=== PATIENT | male | born 1965 ===

== ENCOUNTER 2018-06-30 18:15 | Inpatient (IN) | payer OTHER ==
[~2018-06-30] VITALS: Ht 165.1 cm; Wt 61.0 kg
--- NOTE | 2018-06-30 18:57 | ED GENERAL ADULT ---
History of Present Illness General Chief Complaint: Nausea, Vomiting, Diarrhea Stated Complaint: N/V,ABDOMINAL PAIN Source: patient, family Exam Limitations: no limitations Vital Signs & Intake/Output Vital Signs & Intake/Output Vital Signs Date Time Temp Pulse Resp B/P B/P Pulse O2 O2 Flow FiO2 Mean Ox Delivery Rate 06/30 2252 98.6 80 18 138/86 98 Room Air Room Air 06/30 2033 98.6 86 18 144/88 98 Room Air Room Air 06/307 99.0 83 18 155/98 98 Room Air ED Intake and Output 07/01 0000 06/30 1200 Intake Total 1000 Output Total Balance 1000 Intake, IV 1000 Patient 135 lb Weight Allergies Coded Allergies: No Known Allergies (06/30/18) Reconcile Medications Naphazoline HCl/Pheniramine (Naphcon-A Eye Drops) 0.025 %-0.3 % DROPS 1 DROP OU BID EYES (Reported) Triage Note: 52M THINKS HE MAY HAVE FOOD POISONING, HE HAS BEEN VOMITING SINCE THIS MORNING WITHOUT ABDOMINAL PAIN. LAST BM THIS AM. DOUBLED OVER AND ACTIVELY VOMITING IN TRIAGE Triage Nurses Notes Reviewed? yes HPI: This is an otherwise healthy 52-year-old male presenting to the emergency department with several hours of vomiting and nausea. Patient had a normal bowel movement earlier today. He states that he may have eaten a "suspicious egg", for breakfast, and believes that he may have food poisoning. He has had no sick contacts or travel or other recent illness. He denies any blood or bilious aspect of the vomit. He does complain of some poorly localized periumbilical abdominal pain in addition to his nausea. He denies any chest pain or difficulty breathing. He has had no fever or chills. (David Paz MD) Past History Travel History Traveled to [place] past 21 day No Medical History Any Pertinent Medical History? none Surgical History Surgical History: none Family History Hx Contributory? No (David Paz MD) Review of Systems Review of Systems Constitutional: Reports: no symptoms. EENTM: Reports: no symptoms. Respiratory: Reports: no symptoms. Cardiovascular: Reports: no symptoms. GI: Reports: see HPI. Genitourinary: Reports: no symptoms. Musculoskeletal: Reports: no symptoms. Skin: Reports: no symptoms. Neurological/Psychological: Reports: no symptoms. Hematologic/Endocrine: Reports: no symptoms. Immunologic/Allergic: Reports: no symptoms. (David Paz MD) Physical Exam Physical Exam General Appearance: well developed/nourished, no apparent distress Comments: Thin uncomfortable appearing middle-aged male in no acute distress. Alert and oriented 4. No gross neurologic deficits. HEENT exam within normal limits, no JVD, trachea midline, normal lung exam, normal cardiopulmonary exam overall. No abdominal distention, change in bowel sounds, tenderness to palpation or rebound. Normal , intact pulse movement and sensation in all extremities. Core Measures ACS in differential dx? No CVA/TIA Diagnosis: No Sepsis Present: No Sepsis Focused Exam Completed? No (David Paz MD) Progress Differential Diagnoses I considered the following diagnoses in my evaluation of the patient: Gastroenteritis, gastritis, pancreatitis, nephrolithiasis, urinary tract infection, food borne illness, lower suspicion for acute vascular pathology or appendicitis. Low suspicion also for acute obstructive process. Doubt biliary pathology or liver disease in this patient based on exam. Plan of Care: Orders Procedure Date/time Status Nothing by Mouth 07/01 B Active CBC WITHOUT DIFFERENTIAL 07/01 600 Active BASIC ELECTROLYTES PLUS BUN&CR 07/01 06 Active Admit to inpatient 06/30 2320 Active CULTURE,URINE 06/30 225 Active BLOOD CULTURE 06/30 225 Active Pathway - chart 06/30 225 Active House Staff 06/30 225 Active Patient Data 06/30 225 Active Code Status 06/30 225 Active Patient Data 06/30 2240 Active Intake & Output 06/30 1945 Active URINALYSIS 06/30 1825 Complete TROPONIN LEVEL 06/30 1825 Complete LIPASE 06/30 1825 Complete LACTIC ACID 06/30 1825 Complete COMPREHENSIVE METABOLIC PANEL 06/30 1825 Complete CBC WITHOUT DIFFERENTIAL 06/30 1825 Complete EKG 06/30 1825 Active VTE Mechanical Prophylaxis 06/30 UNK Active Vital Signs 06/30 UNK Active Activity/Ambulation 06/30 UNK Active Current Medications Sig/José Manuel Start time Last Medication Dose Stop Time Status Admin Ceftriaxone Sodium 1,000 MG DAILY 07/01 09 AC (Rocephin) Heparin Sodium 5,000 UNIT Q8 07/01 0600 AC (Porcine) Acetaminophen 650 MG Q6P PRN 06/30 2300 AC (Tylenol) Hydromorphone HCl 1 MG Q6P PRN 06/30 2300 AC (Dilaudid) Ketorolac 15 MG Q6P PRN 06/30 2300 AC Tromethamine (Toradol) Ondansetron HCl 4 MG Q6P PRN 06/30 2300 AC (Zofran) Sodium Chloride 1,000 ML .[id number] 06/30 2300 AC 06/30 (Normal Saline 0.9%) 2347 Laboratory Tests 06/30/182124: Lactic Acid Cancelled 06/30/182116: Urine Color YEL, Urine Clarity CLEAR, Urine pH 7.0, Ur Specific [place] 1.020, Urine Protein NEG, Urine Ketones TRACE H, Urine Nitrite NEG, Urine Bilirubin NEG, Urine Urobilinogen 0.2, Ur Leukocyte Esterase TRACE H, Ur Microscopic SEDIMENT EXAMINED, Urine RBC 3-5, Urine WBC 15-25 H, Ur Epithelial Cells RARE, Urine Bacteria RARE H, Urine Mucus FEW, Urine Hemoglobin TRACE-INTACT H, Urine Glucose 100 H 06/30/181904: Anion Gap 8, Estimated GFR > 60, BUN/Creatinine Ratio 18.3, Glucose 144 H, Lactic Acid 1.5, Calcium 9.6, Total Bilirubin 0.6, AST 24, ALT 27, Alkaline Phosphatase 76, Troponin I < 0.01, Total Protein 7.7, Albumin 4.4, Globulin 3.3, Albumin/Globulin Ratio 1.3, Lipase 38, CBC w Diff NO MAN DIFF REQ, RBC 5.00, MCV 85.7, MCH 29.6, MCHC 34.5, RDW 13.6, MPV 8.3, Gran % 93.5 H, Lymphocytes % 3.5 L, Monocytes % 2.5, Eosinophils % 0.1, Basophils % 0.4, Absolute Granulocytes 11.5 H, Absolute Lymphocytes 0.4 L, Absolute Monocytes 0.3, Absolute Eosinophils 0, Absolute Basophils 0 Microbiology 06/30 2338 BLOOD: Blood Culture - RECD 06/30 2330 BLOOD: Blood Culture - RECD 06/30 2117 URINE ROUT: Urine Culture - RECD In this otherwise healthy 52-year-old male with no toxic habits, presentation is most consistent with gastritis, possibly viral versus acute food borne versus other intra-abdominal process such as nephrolithiasis or appendicitis. Diagnostics are consistent with obstructive nephrolithiasis with UTI. Patient started on ceftriaxone, given IV fluids, Toradol, Dilaudid, admitted to hospital for further management. Dr. Jacinto is paged but I did not receive a call back during my shift. Hospitalist aware, patient admitted to their service. Initial ED EKG: normal intervals, normal p-waves, normal QRS complex, normal sinus rhythm, no ST T wave changes, LAFB, likely L/COLT; Qt400 (David Paz MD) Departure Departure Time of Disposition: 2258 Disposition: STILL A PATIENT Condition: Stable Clinical Impression Primary Impression: Abdominal pain with vomiting Referrals: Unknown (PCP/Family) Departure Forms: Customer Survey General Discharge Information Admission Note Spoke With: Rocky Chong MD Documentation of Exam: Documentation of any treatments & extenuating circumstances including Concerns Regarding Discharge (functional status, medication knowledge or non-compliance, living conditions, etc.) that warrant an admission rather than observation: IV antibiotics, urology consultation with possible stenting; IV fluids, frequent reassessment. (David Paz MD) Resident Co-Sign Statement Statement: ED Attending supervision documentation- I saw and evaluated the patient. I have also reviewed all the pertinent lab results and diagnostic results. I agree with the findings and the plan of care as documented in the Resident's documentation. x I have reviewed the ED Record and agree with the Resident's documentation. [] Additions or exceptions (if any) to the Resident's note and plan are summarized below: [] (Lakia RUIZ,Stuart) Critical Care Note Critical Care Note Critical Care Time: non-applicable (David Paz MD)
[2018-06-30 19:13] LABS: ABSOLUTE BASOPHIL COUNT 0 /CUMM (0.0-0.2); ABSOLUTE EOSINOPHIL COUNT 0 /CUMM (0.0-0.7); ABSOLUTE GRANULOCYTE CT 11.5 /CUMM (1.4-6.5); ABSOLUTE LYMPH COUNT 0.4 /CUMM (1.2-3.4); ABSOLUTE MONOCYTE COUNT 0.3 /CUMM (0.10-0.60); BASOPHIL % 0.4 % (0.0-2.0); EOSINOPHIL % 0.1 % (0-5); HEMATOCRIT 42.9 % (42-52); MEAN CORPUSCULAR HGB 29.6 PG (27.0-31.0); MEAN CORPUSCULAR HGB CONC 34.5 G/DL (33.0-37.0); MEAN CORPUSCULAR VOLUME 85.7 FL (80.0-94.0); MEAN PLATELET VOLUME 8.3 FL (7.4-10.4); PLATELET COUNT 237 /CUMM (130-400); RBC DISTRIBUTION WIDTH 13.6 % (11.5-14.5); WHITE BLOOD CELL COUNT 12.3 /CUMM (4.8-10.8)
[2018-06-30 19:18] LABS: GRANULOCYTE % 93.5 % (42.2-75.2)
[2018-06-30] MEDS ORDERED: NAPHCON-A EYE D15 ML OU (19:23)
--- NOTE | 2018-06-30 21:46 | CT SCAN REPORT ---
EXAMINATION: CT ABDOMEN AND PELVIS WITH CONTRAST CLINICAL INFORMATION: Right lower quadrant pain with vomiting and leukocytosis. COMPARISON: None available. TECHNIQUE: Multidetector volumetric imaging was performed of the abdomen and pelvis following IV administration of 95 mL of Optiray 320 intravenous contrast. Sagittal and coronal reformatted images were obtained on the technologist's workstation. FINDINGS: Right-sided obstructive uropathy. There is a 6 mm calculus within the proximal right ureter at the inferior L3 level and there is a second 4 mm calculus within the proximal right ureter at the upper L4 level (both calculi exhibit mean Hounsfield units of 500). These obstructing calculi result in severe right-sided hydroureteronephrosis. There is a 5 month meter calculus within the lower pole of the right kidney. There is a punctate calculus within the midpole of the left kidney. There is a delayed right-sided nephrogram. There is right-sided perinephric and proximal right periureteral stranding/fluid. Small left renal cyst. The lung bases are clear. There is diffuse hepatic steatosis. The spleen, adrenal glands, gallbladder, and pancreas are normal. The large and small bowel are normal in caliber without evidence of mechanical obstruction. No focal inflammatory changes adjacent to the large or the small bowel. The appendix is normal. There is no free air and there is no intra-abdominal free fluid. No mesenteric or retroperitoneal adenopathy. The pelvic viscera are normal. No pelvic adenopathy. No free fluid within the pelvis. There are no acute osseous abnormalities. Lumbar spondylosis. No significant soft tissue abnormality. IMPRESSION: Right-sided obstructive uropathy. There is a 6 mm calculus within the proximal right ureter at the inferior L3 level and there is a second 4 mm calculus within the proximal right ureter at the upper L4 level (both calculi exhibit mean Hounsfield units of 500). These obstructing calculi result in severe right-sided hydroureteronephrosis. There is a delayed right-sided nephrogram and there is right-sided perinephric and proximal right periureteral stranding/fluid. Superimposed pyelonephritis is not excluded.
[2018-07-01 02:21] VITALS: BP 130/98
--- NOTE | 2018-07-01 04:34 | History & Physical ---
Jacque Moreno 07/01/18 0434: General Information and HPI MD Statement: I have seen and personally examined KARLA MAYORGA and documented this H&P. The patient is a 52 year old M who presented with a patient stated chief complaint of []. Source of Information: patient Exam Limitations: no limitations History of Present Illness: 52 year old male with no PMH presents to the ED with one day history of nausea/ vomiting and abdominal pain. He states he ate an egg this morning and didn't feel well shortly after. He reports 3-4 episodes of non bloody emesis with associated sweats starting at 13:00. He reports his abdominal pain is right sided and does not radiate to his back or his groin. He denies any history of kidney stones. Denies fever, chills, chest pain, SOB. Past History Travel History Traveled to [place] past 21 day No Medical History Neurological: NONE EENT: NONE Cardiovascular: NONE Respiratory: NONE Gastrointestinal: NONE Hepatic: NONE Renal: NONE Musculoskeletal: NONE Psychiatric: NONE Endocrine: NONE Blood Disorders: NONE Cancer(s): NONE CLIMATE CHANGE ANALYST/Reproductive: NONE History of MRSA: No History of VRE: No History of CDIFF: No Isolation History: Standard Surgical History Surgical History: none Past Family/Social History Psychosocial History Where do you live? Home Who Do You Live With? spouse Services at Home: None Smoking Status: Never Smoked ETOH Use: denies use Illicit Drug Use: denies illicit drug use Review of Systems Review of Systems Constitutional: Reports: no symptoms. EENTM: Reports: no symptoms. Cardiovascular: Reports: no symptoms. Respiratory: Reports: no symptoms. GI: Reports: abdominal pain, nausea, vomiting. Genitourinary: Reports: no symptoms. Musculoskeletal: Reports: no symptoms. Skin: Reports: no symptoms. Exam & Diagnostic Data Last 24 Hrs of Vital Signs/I&O Vital Signs Date Time Temp Pulse Resp B/P B/P Pulse O2 O2 Flow FiO2 Mean Ox Delivery Rate 07/01 0241 98 Room Air 07/01 0221 98.5 86 22 130/98 94 Room Air 07/01 0143 97.6 76 18 129/67 98 Room Air 06/30 2252 98.6 80 18 138/86 98 Room Air Room Air 06/303 98.6 86 18 144/88 98 Room Air Room Air 06/30 1827 99.0 83 18 155/98 98 Room Air Intake & Output 07/01 0800 07/01 0000 06/30 1600 Intake Total 1000 Output Total Balance 1000 Intake, IV 1000 Patient 134 lb 135 lb Weight Weight Bed scale Measurement Method Physical Exam General Appearance Alert, Oriented X3, Cooperative, No Acute Distress, Patient received dilaudid and toradol prior to my exam Skin No Rashes Skin Temp/Moisture Exam: Warm/Dry HEENT Atraumatic, PERRLA Neck Supple Cardiovascular Regular Rate, Normal S1, Normal S2, No Murmurs Lungs Clear to Auscultation Abdomen Normal Bowel Sounds, Soft, No Tenderness Extremities No Edema, Normal Pulses Assessment/Plan Assessment: 52 year old male with no PMH presents to the ED with one day history of nausea/ vomiting and abdominal pain. He states he ate an egg this morning and didn't feel well shortly after. He reports 3-4 episodes of non bloody emesis with associated sweats starting at 13:00. He reports his abdominal pain is right sided and does not radiate to his back or his groin. He denies any history of kidney stones. ED work up found right sided renal stones with associated hydroureteronephrosis. Patient to be admitted to the general medicine service for further care of the following: Problem List: 1. Right Renal Calculi Admission Data: VS T99.0 P83 RR18 BP 155/98 Sat 98%RA Labs: WBC 12.3 H/H 14.8/42.9 Plt 237 BUN/Cr 22/1.2 UA: Nit negative; leukocyte esterase trace; WBC high CT abd/pelv: IMPRESSION: Right-sided obstructive uropathy. There is a 6 mm calculus within the proximal right ureter at the inferior L3 level and there is a second 4 mm calculus within the proximal right ureter at the upper L4 level (both calculi exhibit mean Hounsfield units of 500). These obstructing calculi result in severe right-sided hydroureteronephrosis. There is a delayed right-sided nephrogram and there is right-sided perinephric and proximal right periureteral stranding/fluid. Superimposed pyelonephritis is not excluded. #Right renal calculi -Urine strainer -Ceftriaxone -Ketorolac -Zofran -IV fluid hydration NS 75cc/hr -Urine culture -blood culture -NPO after MN (in case urology wants to perform a procedure) -Urology consult placed DVT prophylaxis: heparin 5000units sub cu/ALPS/ambulation Code Status: full code As Ranked By This Provider Problem List: 1. Abdominal pain with vomiting 2. Renal calculus, right Core Measures/Misc (07/30) Acute Coronary Syndrome ACS Diagnosis: No Congestive Heart Failure Congestive Heart Failure Diagnosis No Cerebrovascular Accident CVA/TIA Diagnosis: No VTE (View Protocol) VTE Risk Factors Acute Medical Illness No Mechanical VTE Prophylaxis d/t N/A MechProphylax Ordered No VTE Pharm Prophylaxis d/t NA PharmProphylax ordered Sepsis (View protocol) Sepsis Present: No If YES complete Sepsis Event Note If YES complete Sepsis Event Note Mario Sargent 07/01/18 0456: Core Measures/Misc (07/30) Sepsis (View protocol) If YES complete Sepsis Event Note If YES complete Sepsis Event Note Resident Review Statement Resident Statement: examined this patient, discussed with electrical intern, agreed with electrical intern, discussed with family, reviewed EMR data (avail), discussed with nursing , discussed with case mgmt, reviewed images, amended to note Other Findings: This is a 52-year-old male with no significant past medical history presented to the hospital for evaluation of nausea, vomiting, abdominal pain since morning. Patient has no past medical history. He does not take any medications at home. Patient reports sudden onset of Nausea associated with the vomiting 2-3 times before he came to the emergency room. Vomiting was non-bloody and nonbilious. He reported right-sided abdominal pain going to right lower side, not associated with any diarrhea. No alternating bowel movements. No history of IBD. Denies sick contact or travel history. He has no history of renal stones in the past. Denies any frequency, urgency, dysuria. Denies any fever, chills, Shortness of breath, chest pain, palpitations, change in bladder or bowel habits. He denies smoking, alcohol abuse, illicit drug abuse ----- Vitals afebrile, heart rate 83, respiratory rate 18, blood pressure 155/90, saturating at 98 on room air Labs WBC 12.3, hemoglobin 14, hematocrit 42, platelets 289 BEP normal limit Lactic acid 1.5 UA positive for esterase, WBC, bacteria, hemoglobin He was given IV ceftriaxone, sodium chloride 1 bag, Toradol, Dilaudid, Zofran in the er CT abdomen and pelvis Right-sided obstructive uropathy. There is a 6 mm calculus within the proximal right ureter at the inferior L3 level and there is a second 4 mm calculus within the proximal right ureter at the upper L4 level (both calculi exhibit mean Hounsfield units of 500). These obstructing calculi result in severe right-sided hydroureteronephrosis. There is a delayed right-sided nephrogram and there is right-sided perinephric and proximal right periureteral stranding/fluid. - 1. Acute pyelonephritis secondary to right-sided obstructive uropathy Patient presented with 1 day history of nausea, vomiting, right-sided abdominal pain. He was found to have leukocytosis, UA showed esterase, WBC, bacteria. CAT scan abdomen showed right obstructive uropathy and 6 mm calculus right ureter, severe right-sided hydro-ureteronephrosis. * Admitted to [facility] * Monitor vitals every shift * Monitor for fever, leukocytosis * Acute pyelonephritis secondary to right-sided obstructive uropathy with 6 mm calculus right ureter leading to severe right-sided hydroureteronephrosis * Continue IV ceftriaxone * Follow-up blood cultures 2 * Follow-up urine cultures * Adequate pain management Tylenol, Toradol, Dilaudid * Continue IV fluids at 75 mL/h * Antiemetics * Urology consult * Patient is n.p.o. pending uro evaluation Patient is full code N.p.o. pending a urology evaluation Sub-cutaneous IV heparin Pain pathway ordered Rocky Chong MD 07/01/18 0642: General Information and HPI MD Statement: I have seen and personally examined KARLA MAYORGA and documented this H&P. The patient is a 52 year old M who presented with a patient stated chief complaint of []. Source of Information: patient Exam Limitations: no limitations Allergies/Medications Allergies: Coded Allergies: No Known Allergies (06/30/18) Home Med list Naphazoline HCl/Pheniramine (Naphcon-A Eye Drops) 0.025 %-0.3 % DROPS 1 DROP OU BID EYES (Reported) Past Family/Social History Psychosocial History Smoking Status: Never Smoked ETOH Use: denies use Illicit Drug Use: denies illicit drug use Review of Systems Review of Systems Constitutional: Reports: see HPI. Exam & Diagnostic Data Last 24 Hrs of Vital Signs/I&O Vital Signs Date Time Temp Pulse Resp B/P B/P Pulse O2 O2 Flow FiO2 Mean Ox Delivery Rate 07/01 0550 98.3 90 22 132/90 96 Room Air 07/01 0241 98 Room Air 07/01 0221 98.5 86 22 130/98 94 Room Air 07/01 0143 97.6 76 18 129/67 98 Room Air 06/30 2252 98.6 80 18 138/86 98 Room Air Room Air 06/30 2033 98.6 86 18 144/88 98 Room Air Room Air 06/30 1827 99.0 83 18 155/98 98 Room Air Intake & Output 07/01 0800 07/01 0000 06/30 1600 Intake Total 1000 Output Total 300 Balance -300 1000 Intake, IV 1000 Output, Urine 300 Patient 134 lb 135 lb Weight Weight Bed scale Measurement Method Physical Exam General Appearance Alert, Oriented X3, Cooperative, No Acute Distress Skin No Rashes, No Breakdown, No Significant Lesion Skin Temp/Moisture Exam: Warm/Dry Sepsis Skin Exam (color): Normal for Ethnicity HEENT Atraumatic, PERRLA, EOMI Neck Supple, No JVD Lymphatic Axillary nl, Cervical nl Cardiovascular Regular Rate, Normal S1, Normal S2, No Murmurs Lungs Clear to Auscultation, Normal Air Movement Abdomen Normal Bowel Sounds, Soft, No Tenderness, No Hepatospenomegaly Neurological Normal Speech Extremities No Edema, Normal Pulses Sepsis Peripheral Pulse Location: Dorsalis Pedis Sepsis Peripheral Pulse Exam: Normal Sepsis Cap Refill Exam: <2 Sec Last 24 Hrs of Labs/Lionel: Laboratory Tests 08/18/18 2125: Lactic Acid Cancelled 06/30/182116: Urine Color YEL, Urine Clarity CLEAR, Urine pH 7.0, Ur Specific [place] 1.020, Urine Protein NEG, Urine Ketones TRACE H, Urine Nitrite NEG, Urine Bilirubin NEG, Urine Urobilinogen 0.2, Ur Leukocyte Esterase TRACE H, Ur Microscopic SEDIMENT EXAMINED, Urine RBC 3-5, Urine WBC 15-25 H, Ur Epithelial Cells RARE, Urine Bacteria RARE H, Urine Mucus FEW, Urine Hemoglobin TRACE-INTACT H, Urine Glucose 100 H 06/30/181904: Anion Gap 8, Estimated GFR > 60, BUN/Creatinine Ratio 18.3, Glucose 144 H, Lactic Acid 1.5, Calcium 9.6, Total Bilirubin 0.6, AST 24, ALT 27, Alkaline Phosphatase 76, Troponin I < 0.01, Total Protein 7.7, Albumin 4.4, Globulin 3.3, Albumin/Globulin Ratio 1.3, Lipase 38, CBC w Diff NO MAN DIFF REQ, RBC 5.00, MCV 85.7, MCH 29.6, MCHC 34.5, RDW 13.6, MPV 8.3, Gran % 93.5 H, Lymphocytes % 3.5 L, Monocytes % 2.5, Eosinophils % 0.1, Basophils % 0.4, Absolute Granulocytes 11.5 H, Absolute Lymphocytes 0.4 L, Absolute Monocytes 0.3, Absolute Eosinophils 0, Absolute Basophils 0 Microbiology 06/30 2338 BLOOD: Blood Culture - RECD 06/30 2330 BLOOD: Blood Culture - RECD 06/30 2117 URINE ROUT: Urine Culture - RECD Diagnostic Data EKG Results normal intervals, normal p-waves, normal QRS complex, normal sinus rhythm, no ST T wave changes, LAFB, likely L/COLT; Qt400 Core Measures/Misc (07/30) Sepsis (View protocol) If YES complete Sepsis Event Note If YES complete Sepsis Event Note Attending MD Review Statement Attending Statement Attending MD Statement: examined this patient, discuss w/resident/PA/SEMICONDUCTOR LAB TECHNICIAN, agreed w/resident/PA/SEMICONDUCTOR LAB TECHNICIAN, reviewed EMR data (avail) Attending Assessment/Plan: This patient is a 52-year-old male without a significant past medical history who presented to the hospital for evaluation of nausea, vomiting, abdominal pain since morning. He reports sudden onset of Nausea associated with vomiting 2-3 times before he came to the emergency room. Vomiting was non-bloody and nonbilious. He reported right-sided abdominal pain going to right lower side, not associated with any diarrhea. Upon evaluation in the emergency department he was found to be afebrile with stable vital signs, leukocytosis 12.3, UA demonstrates (trace ketones, trace leukocyte esterase, 3-5 red blood cells, 15- 25 white blood cells and rare bacteria), BUN 22, lactic acid 1.5, CT ABD/Pelv -- Right-sided obstructive uropathy. There is a 6 mm calculus within the proximal right ureter at the inferior L3 level and there is a second 4 mm calculus within the proximal right ureter at the upper L4 level (both calculi exhibit mean Hounsfield units of 500). These obstructing calculi result in severe right-sided hydroureteronephrosis. There is a delayed right-sided nephrogram and there is right-sided perinephric and proximal right periureteral stranding/fluid. Superimposed pyelonephritis is not excluded. The patient is being admitted to general med for hydronephrosis, nephrolithiasis and pyelonephritis. Would continue IV ceftriaxone and follow blood cultures. The patient needed significant pain meds for pain control in the ED with continue to keep comfortable. Nothing by mouth after midnight and gentle hydration. Full code.
[2018-07-01 05:50] VITALS: BP 132/90
--- NOTE | 2018-07-01 08:39 | PN- Housestaff ---
Chalo Mackenzie 07/01/18 0839: Subjective Follow-up For: Right Renal Calculi Subjective: The patient has gone to OR this morning for urologic procedure. Based on the reports from the nurse, there was no major complaints overnight. No shortness of breath, chest pain, fever, chills, sweating. I visited the patient when he was back from the OR, he was not nauseous, had bloody urine after the procedure, started him on diet to see if he tolerates. Asked him to start with liquids. Review of Systems Constitutional: Reports: see HPI. Objective Last 24 Hrs of Vital Signs/I&O Vital Signs Date Time Temp Pulse Resp B/P B/P Pulse O2 O2 Flow FiO2 Mean Ox Delivery Rate 07/01 0800 Room Air 07/01 0550 98.3 90 22 132/90 96 Room Air 07/01 0241 98 Room Air 07/01 0221 98.5 86 22 130/98 94 Room Air 07/01 0143 97.6 76 18 129/67 98 Room Air 06/30 2252 98.6 80 18 138/86 98 Room Air Room Air 06/30 2033 98.6 86 18 144/88 98 Room Air Room Air 06/30 1827 99.0 83 18 155/98 98 Room Air Intake & Output 07/01 1600 07/01 0800 07/01 0000 Intake Total 150 1000 Output Total 600 Balance -450 1000 Intake, IV 150 1000 Output, Urine 600 Patient 134 lb 135 lb Weight Weight Bed scale Measurement Method Physical Exam General Appearance: Alert Skin: No Rashes Skin Temp/Moisture Exam: Warm/Dry HEENT: Atraumatic Cardiovascular: Regular Rate, Normal S1, Normal S2 Lungs: Clear to Auscultation, Normal Air Movement Abdomen: Normal Bowel Sounds, Soft, No Tenderness Neurological: Normal Speech Assessment/Plan Assessment: 52 year old male with no PMH presents to the ED with one day history of nausea/ vomiting and abdominal pain. He states he ate an egg this morning and didn't feel well shortly after. He reports 3-4 episodes of non bloody emesis with associated sweats starting at 13:00. He reports his abdominal pain is right sided and does not radiate to his back or his groin. He denies any history of kidney stones. ED work up found right sided renal stones with associated hydroureteronephrosis. Right renal calculi: Plan: Urine strainer, Ceftriaxone, Ketorolac, Zofran, IV fluid hydration NS 75cc /hr, Urine culture, blood culture, NPO after MN (in case urology wants to perform a procedure), Urology consult placed Urologist took him to the OR and ureteroscopy with laser lithotripsy and stone extraction with stent placement, retrograde pyelogram was done. The following are the findings from urologist: Large lower pole right renal stone adherent to the calyx and 2 smaller ureteral stones that were presumably pushed into the kidney. No large stone fragments appreciated at the end of the procedure. There was bleeding that made visualization difficult. Problem List: 1. Abdominal pain with vomiting 2. Renal calculus, right Pain Ratin Pain Location: Abdominal Pain Goal: Pain 4 or less Pain Plan: Acetaminophen Hydromorphone Tomorrow's Labs & Rationales: As indicated Binu Gamze 07/01/18 1636: Attending MD Review Statement Attending Statement Attending MD Statement: examined this patient, discuss w/resident/PA/MACHINE WEDGER, agreed w/resident/PA/MACHINE WEDGER, discussed with family, reviewed EMR data (avail) Attending Assessment/Plan: Right-sided obstructive uropathy with severe rt side hydroureteronephrosis . There is a 6 mm calculus within the proximal right ureter at the inferior L3 level and there is a second 4 mm calculus within the proximal right ureter at the upper L4 level . seen by urology and underwent ureteroscopy with laser lithotripsy and stone extraction with stent placement. Pt tolerated the procedure well and he says his pain is currently managable. d/w pt and pts family at bedside the care plan.
[2018-07-01 09:29] LABS: ABSOLUTE BASOPHIL COUNT 0 /CUMM (0.0-0.2); ABSOLUTE EOSINOPHIL COUNT 0 /CUMM (0.0-0.7); ABSOLUTE LYMPH COUNT 0.9 /CUMM (1.2-3.4); ABSOLUTE MONOCYTE COUNT 0.6 /CUMM (0.10-0.60); BASOPHIL % 0.1 % (0.0-2.0); EOSINOPHIL % 0.1 % (0-5); HEMATOCRIT 38.7 % (42-52); MEAN CORPUSCULAR HGB 29.8 PG (27.0-31.0); MEAN CORPUSCULAR HGB CONC 34.7 G/DL (33.0-37.0); MEAN CORPUSCULAR VOLUME 85.8 FL (80.0-94.0); MEAN PLATELET VOLUME 9.4 FL (7.4-10.4); PLATELET COUNT 197 /CUMM (130-400); RBC DISTRIBUTION WIDTH 13.3 % (11.5-14.5); RED BLOOD CELL CT 4.51 /CUMM (4.70-6.10); WHITE BLOOD CELL COUNT 10.5 /CUMM (4.8-10.8)
--- NOTE | 2018-07-01 09:47 | Cons- Urology ---
General Information and HPI Consulting Request Date of Consult: 07/01/18 Requested By: Rocky Chong MD Reason for Consult: right ureteral stone with severe hydroureteronephrosis Source of Information: patient Exam Limitations: no limitations History of Present Illness: 52 year old male with no PMH presented to the ED with 5 hour history of nausea/ vomiting and RLQ abdominal pain. He thought he had food poisoning. He reports 3-4 episodes of emesis with associated sweats starting in the early afternoon yestarday. He reports mild right sided back pain. He denies any history of kidney stones. He reports no hx of urinary sx of frequency, nocturia, urgency or dysuria. He has had no voiding complaints either. Denies fever, chills, chest pain, SOB or hx of UTIs/prostatitis. Allergies/Medications Allergies: Coded Allergies: No Known Allergies (06/30/18) Home Med List: Naphazoline HCl/Pheniramine (Naphcon-A Eye Drops) 0.025 %-0.3 % DROPS 1 DROP OU BID EYES (Reported) Current Medications: Current Medications Sig/José Manuel Start time Last Medication Dose Route Stop Time Status Admin Acetaminophen 0 .STK-MED ONE 07/01 0909 DC IV Acetaminophen 650 MG Q6P PRN 06/30 2300 AC PO Ceftriaxone Sodium 1,000 MG DAILY 07/01 0900 AC 07/01 IV 0850 Ceftriaxone Sodium 0 .STK-MED ONE 06/30 2235 DC .ROUTE Ceftriaxone Sodium 1,000 MG ONCE ONE 06/30 2215 DC 06/30 IV 06/30 2216 2244 Fentanyl Citrate 0 .STK-MED ONE 07/01 0910 DC .ROUTE Heparin Sodium 5,000 UNIT Q8 07/01 0600 AC 07/01 (Porcine) SC 0745 Hydromorphone HCl 0 .STK-MED ONE 07/01 0936 DC .ROUTE Hydromorphone HCl 1 MG Q6P PRN 06/30 2300 AC IV Hydromorphone HCl 1 MG ONCE ONE 06/30 1930 DC 06/30 IV 06/30 193 1944 Hydromorphone HCl 0 .STK-MED ONE 06/30 1922 DC .ROUTE Ketorolac 15 MG Q6P PRN 06/30 2300 AC Tromethamine IV Ketorolac 0 .STK-MED ONE 06/30 2139 DC Tromethamine .ROUTE Ketorolac 30 MG ONCE ONE 06/30 2130 DC 06/30 Tromethamine IV 06/30 2131 2150 Midazolam HCl 0 .STK-MED ONE 07/01 0909 DC .ROUTE Ondansetron HCl 4 MG Q6P PRN 06/30 2300 AC IV Ondansetron HCl 0 .STK-MED ONE 06/30 1909 DC .ROUTE Ondansetron HCl 4 MG ONCE ONE 06/30 1845 DC 06/30 IV 06/30 184 1912 Sodium Chloride 1,000 ML .[id number] 06/30 2300 AC 06/30 IV 2347 Sodium Chloride 1,000 ML BOLUS ONE 06/30 193 DC 06/30 IV 06/30 Past History Medical History Neurological: NONE EENT: NONE Cardiovascular: NONE Respiratory: NONE Gastrointestinal: NONE Hepatic: NONE Renal: NONE Musculoskeletal: NONE Psychiatric: NONE Endocrine: NONE Blood Disorders: NONE Cancer(s): NONE END TRIMMER/Reproductive: NONE Surgical History Pertinent Surgical History: 1 Psychosocial History Where Do You Live? Home Who Do You Live With? spouse Services at Home: None Smoking Status: Never Smoked ETOH Use: denies use Illicit Drug Use: denies illicit drug use Review of Systems Review of Systems Constitutional: Reports: no symptoms. EENTM: Reports: no symptoms. Cardiovascular: Reports: no symptoms. Respiratory: Reports: no symptoms. GI: Reports: abdominal pain. Genitourinary: Reports: no symptoms. Musculoskeletal: Reports: back pain. Skin: Reports: no symptoms. Neurological/Psychological: Reports: no symptoms. Hematologic/Endocrine: Reports: no symptoms. Immunologic/Allergic: Reports: no symptoms. Exam & Diagnostic Data Vital Signs and I&O Vital Signs Date Time Temp Pulse Resp B/P B/P Pulse O2 O2 Flow FiO2 Mean Ox Delivery Rate 07/01 0550 98.3 90 22 132/90 96 Room Air 07/01 0241 98 Room Air 07/01 0221 98.5 86 22 130/98 94 Room Air 07/01 0143 97.6 76 18 129/67 98 Room Air 06/30 2252 98.6 80 18 138/86 98 Room Air Room Air 06/30 2033 98.6 86 18 144/88 98 Room Air Room Air 06/30 182 99.0 83 18 155/98 98 Room Air Intake & Output 07/01 1600 07/01 0800 07/01 0000 06/30 1600 06/30 0800 06/30 0000 Intake Total 150 1000 Output Total 600 Balance -450 1000 Intake, IV 150 1000 Output, Urine 600 Patient 60.98 kg 61.235 kg Weight Weight Bed scale Measurement Method Physical Exam General Appearance: well developed/nourished, no apparent distress, alert, awake , comfortable Head: atraumatic, normal appearance Eyes: Bilateral: normal appearance. Ears, Nose, Throat: normal ENT inspection Neck: normal inspection Respiratory: no respiratory distress Gastrointestinal: soft, non-tender Rectal: deferred Back: normal inspection Extremities: normal inspection Neurologic/Psych: awake, alert, oriented x 3 Cranial Nerves: normal hearing, normal speech Skin: intact, normal color, warm/dry Reproductive: Normal male genitalia Last 24 Hours of Labs: Laboratory Tests 07/01 06/30 06/30 0745 5 7 Chemistry Sodium (137 - 145 mmol/L) 140 Potassium (3.5 - 5.1 mmol/L) 3.2 L Chloride (98 - 107 mmol/L) 104 Carbon Dioxide (22 - 30 mmol/L) 25 Anion Gap (5 - 16) 10 BUN (9 - 20 mg/dL) 20 Creatinine (0.7 - 1.2 mg/dL) 1.1 Estimated GFR (>60 ml/min) > 60 BUN/Creatinine Ratio (7 - 25 %) 18.2 Lactic Acid Cancelled Hematology CBC w Diff Pending WBC Pending RBC Pending Hgb Pending Hct Pending MCV Pending MCH Pending MCHC Pending RDW Pending Plt Count Pending MPV Pending Gran % Pending Lymphocytes % Pending Monocytes % Pending Eosinophils % Pending Basophils % Pending Absolute Granulocytes Pending Absolute Lymphocytes Pending Absolute Monocytes Pending Absolute Eosinophils Pending Absolute Basophils Pending Urines Urine Color (YEL,AMB,STR) YEL Urine Clarity (CLEAR) CLEAR Urine pH (5.0 - 8.0) 7.0 Ur Specific Moran (1.001 - 1.035) 1.020 Urine Protein (NEG,<30 MG/DL) NEG Urine Ketones (NEG) TRACE H Urine Nitrite (NEG) NEG Urine Bilirubin (NEG) NEG Urine Urobilinogen (0.1 - 1.0 EU/dl) 0.2 Ur Leukocyte Esterase (NEG) TRACE H Ur Microscopic SEDIMENT EXAMINED Urine RBC (0 - 5 /HPF) 3-5 Urine WBC (0 - 2 /HPF) 15-25 H Ur Epithelial Cells (NONE,FEW) RARE Urine Bacteria (NEG/NONE) RARE H Urine Mucus (FEW,NONE) FEW Urine Hemoglobin (NEG) TRACE-INTACT H Urine Glucose (N MG/DL) 100 H 06/30 1905 Chemistry Sodium (137 - 145 mmol/L) 141 Potassium (3.5 - 5.1 mmol/L) 3.7 Chloride (98 - 107 mmol/L) 104 Carbon Dioxide (22 - 30 mmol/L) 29 Anion Gap (5 - 16) 8 BUN (9 - 20 mg/dL) 22 H Creatinine (0.7 - 1.2 mg/dL) 1.2 Estimated GFR (>60 ml/min) > 60 BUN/Creatinine Ratio (7 - 25 %) 18.3 Glucose (65 - 99 mg/dL) 144 H Lactic Acid (0.7 - 2.1 mmol/L) 1.5 Calcium (8.4 - 10.2 mg/dL) 9.6 Total Bilirubin (0.2 - 1.3 mg/dL) 0.6 AST (17 - 59 U/L) 24 ALT (21 - 72 U/L) 27 Alkaline Phosphatase (< 127 U/L) 76 Troponin I (<0.11 ng/ml) < 0.01 Total Protein (6.3 - 8.2 g/dL) 7.7 Albumin (3.5 - 5.0 g/dL) 4.4 Globulin (1.9 - 4.2 gm/dL) 3.3 Albumin/Globulin Ratio (1.1 - 2.2 %) 1.3 Lipase (23 - 300 U/L) 38 Hematology CBC w Diff NO MAN DIFF REQ WBC (4.8 - 10.8 /CUMM) 12.3 H RBC (4.70 - 6.10 /CUMM) 5.00 Hgb (14.0 - 18.0 G/DL) 14.8 Hct (42 - 52 %) 42.9 MCV (80.0 - 94.0 FL) 85.7 MCH (27.0 - 31.0 PG) 29.6 MCHC (33.0 - 37.0 G/DL) 34.5 RDW (11.5 - 14.5 %) 13.6 Plt Count (130 - 400 /CUMM) 237 MPV (7.4 - 10.4 FL) 8.3 Gran % (42.2 - 75.2 %) 93.5 H Lymphocytes % (20.5 - 51.1 %) 3.5 L Monocytes % (1.7 - 9.3 %) 2.5 Eosinophils % (0 - 5 %) 0.1 Basophils % (0.0 - 2.0 %) 0.4 Absolute Granulocytes (1.4 - 6.5 /CUMM) 11.5 H Absolute Lymphocytes (1.2 - 3.4 /CUMM) 0.4 L Absolute Monocytes (0.10 - 0.60 /CUMM) 0.3 Absolute Eosinophils (0.0 - 0.7 /CUMM) 0 Absolute Basophils (0.0 - 0.2 /CUMM) 0 Imaging Results: CT abd/pelivs Right-sided obstructive uropathy. There is a 6 mm calculus within the proximal right ureter at the inferior L3 level and there is a second 4 mm calculus within the proximal right ureter at the upper L4 level (both calculi exhibit mean Hounsfield units of 500). These obstructing calculi result in severe right-sided hydroureteronephrosis. There is a 5 month meter calculus within the lower pole of the right kidney. There is a punctate calculus within the midpole of the left kidney. There is a delayed right-sided nephrogram. There is right-sided perinephric and proximal right periureteral stranding/fluid. Small left renal cyst. Assessment/Plan Assessment/Plan 52yo healthy male with right sided ureteral stones causing urinary obstruction with severe hydroureteronephrosis with N/V and elevated WBC. Recommend Ureteroscopy with laser lithotripsy stone extraction and stent placement to relieve his obstruction. Discussed the risks, benefits and alternatives of the surgery including ESWL. Answered all questions. He wished to proceed and consent was signed. He has been NPO/IVF since yesterday with IV rocephin received this am. Consult Acknowledgment - Thank you for your consult request.
[2018-07-01 10:16] LABS: GRANULOCYTE % 85.8 % (42.2-75.2)
--- NOTE | 2018-07-01 11:29 | Operative Report ---
Operative/Inv Procedure Report Surgery Date: 07/01/18 Name of Procedure: ureteroscopy with laser lithotripsy and stone extraction with stent placement, retrograde pyelogram Pre-Operative Diagnosis: right ureteral stones Post-Operative Diagnosis: right kidney and ureteral stones Estimated Blood Loss: less than 50ml Surgeon/Tool Engine Lathe Set Up Operator: Radha aJcinto Anesthesia: laryngeal mask airway Drains: 6x24cm stent Specimens: stone fragments Complications: none Condition: stable Operative Indication: severe right hydroureteronephrosis w N/V and elevated WBC Operative/Procedure Note Note: 52-year-old male with a 5 hour history of nausea vomiting and right lower quadrant pain. He came to the ER and had CT imaging which showed 2 right ureteral stones with severe hydroureteronephrosis with an elevated white count. He was admitted overnight and given IV Rocephin. Given his clinical presentation he was brought to the operating room for ureteroscopy and laser lithotripsy and stent placement. The risks benefits and alternatives of the surgery were given and all questions were answered. Consent was signed in the holding area. Patient was brought to the operating room placed on the operating table in the supine position. Timeout was performed in the holding area and IV antibiotics had been given this morning on the floor. LMA anesthesia was begun. Patient was placed in the dorsolithotomy position and prepped and draped in the standard sterile fashion. Cystoscopy was performed the bladder was globally inspected. There were no lesions trabeculation or other abnormalities. Ureteral orifices were easily identified. The right ureteral orifice was cannulated with a superstiff guidewire. A semirigid ureteroscope was attempted to be placed but he had some mild J hooking of the ureteral orifice making it difficult to enter with semirigid ureteroscope. As result the ureteral access sheath 25 cm was placed over the wire first the inner sheath followed by the inner sheath and outer sheath together. This was passed without difficulty under fluoroscopic guidance. The flexible digital ureteroscope was then used to traverse the ureter. No stones were seen in the ureter at the may have been pushed up by the wire. Multiple stones were seen in the lower pole. There were no stones in the upper mid calyces. The lower pole stones were then addressed with the 278 laser fiber. Once the stones were fragmented to smaller pieces the 0 tip basket was then used to remove the fragments. One particular fragment was too large and could not surpass the UPJ and this was lasered further. The fragments were removed and collected in specimen jar. It did get a little bit bloody and visualization was difficult due to the laser side effects. Retrograde pyelogram was performed and no significant or obvious filling defects were noted. Again the upper middle and lower calyces were examined and no largest stone fragments were seen. There were some clots in the lower pole. These were removed and again no stone fragments were seen. The ureter was evaluated on the way out and no stones were seen in the ureter. The superstiff Amplatz wire was then used to place a 6 x 24 cm ureteral stent with fluoroscopic guidance. It was seen to be in good position with fluoroscopy and cystoscopic placement. The wire was pulled. A KUB was performed end of the procedure. The stone fragments were sent for analysis. Patient tolerated the procedure well. He was transferred to the recovery room in stable condition. Findings: Large lower pole right renal stone adherent to the calyx and 2 smaller ureteral stones that were presumably pushed into the kidney. No large stone fragments appreciated at the end of the procedure. There was bleeding that made visualization difficult. Discharge Disposition: PACU
--- NOTE | 2018-07-01 15:48 | RADIOLOGY REPORT ---
EXAMINATION: C-ARM FLUOROSCOPY ASSISTANCE AT THE TIME OF RIGHT-SIDED URETEROSCOPY CLINICAL INFORMATION: 52-year-old male with right-sided obstructive uropathy, seen on prior CT scan of the abdomen and pelvis done on 06/30/2018. COMPARISON: CT of the abdomen and pelvis done on 06/30/2018. TECHNIQUE AND FINDINGS: Multiple spot radiographs were obtained at the time of the procedure (a total of 11 images). Total fluoroscopy time used was 44 seconds. IMPRESSION: C-arm fluoroscopy assistance is provided at the time of right-sided ureteroscopy and right internal ureteric stent placement. Full procedural detail and findings will be dictated by Dr. Jacinto.
[2018-07-01 20:10] VITALS: BP 120/62
[2018-07-01 21:51] VITALS: BP 144/88
[2018-07-02 06:07] VITALS: BP 118/78
--- NOTE | 2018-07-02 06:50 | PN- Housestaff ---
Chalo Mackenzie 07/02/18 0649: Subjective Follow-up For: Right Renal Calculi Subjective: I visited this patient this morning, he was lying back in his bed, alert and oriented 3. He was in no acute distress. He reports abdominal pain in right lower quadrant. Nurse reported a temperature of 102.8 overnight, this afternoon at 14:45, a temperature of 101.5 was reported to me. The patient mentioned that he is still has hematuria, with dark blood in her urine. He denies any shortness of breath, lightheadedness, dizziness, chest pain. Review of Systems Constitutional: Reports: see HPI. Objective Last 24 Hrs of Vital Signs/I&O Vital Signs Date Time Temp Pulse Resp B/P B/P Pulse O2 O2 Flow FiO2 Mean Ox Delivery Rate 07/02 08 97 Part ReBreather 07/02 0607 98.3 83 18 118/78 96 Room Air 07/02 0214 100.6 07/01 2315 101.7 105 07/01 2241 100.6 07/01 2151 102.8 111 20 144/88 94 07/01 2142 102.8 07/01 2010 99.0 88 120/62 Intake & Output 07/02 1600 07/02 0800 07/02 0000 Intake Total 850 500 Output Total 400 350 Balance 450 150 Intake, IV 600 300 Intake, Oral 250 200 Output, Urine 400 350 Physical Exam General Appearance: Alert, Oriented X3, Cooperative, No Acute Distress Skin: No Rashes Skin Temp/Moisture Exam: Warm/Dry Sepsis Skin Exam (color): Normal for Ethnicity HEENT: Atraumatic, PERRLA Cardiovascular: Regular Rate, Normal S1, Normal S2 Lungs: Clear to Auscultation, Normal Air Movement Abdomen: Normal Bowel Sounds, Soft, RLQ tenderness Neurological: Normal Speech, Strength at 5/5 X4 Ext, Normal Tone, Sensation Intact Extremities: No Clubbing, No Cyanosis, No Edema, Normal Pulses Vascular: Normal Pulses, Pulses Symmetrical Assessment/Plan Assessment: 52 year old male with no PMH presents to the ED with one day history of nausea/ vomiting and abdominal pain. He states he ate an egg this morning and didn't feel well shortly after. He reports 3-4 episodes of non bloody emesis with associated sweats starting at 13:00. He reports his abdominal pain is right sided and does not radiate to his back or his groin. He denies any history of kidney stones. ED work up found right sided renal stones with associated hydroureteronephrosis. Right renal calculi: Plan: Urine strainer, Ketorolac, Zofran, IV fluid hydration NS 75cc/hr, Urine culture, blood culture, NPO after MN (in case urology wants to perform a procedure), Urology consult placed Urologist took him to the OR and ureteroscopy with laser lithotripsy and stone extraction with stent placement, retrograde pyelogram was done. The following are the findings from urologist: Large lower pole right renal stone adherent to the calyx and 2 smaller ureteral stones that were presumably pushed into the kidney. No large stone fragments appreciated at the end of the procedure. There was bleeding that made visualization difficult. Pyelonephritis: Pyelonephritis is probably caused by the underlying obstructive uropathy. He had one spike a fever to 102.8 overnight, and a fever of 101.5 on July 02. Urine culture and blood culture were negative after 1 day. Plan: The patient is on IV ceftriaxone, we will change the antibiotic to p.o. once he is afebrile. Hypokalemia: Potassium was 3.2---3.0 Plan: P.o. potassium chloride tablet was given. Constipation: Plan: Senna S, MiraLAX Problem List: 1. Renal calculus, right 2. Abdominal pain with vomiting 3. Pyelonephritis Pain Ratin Pain Location: RLQ ABD Pain Goal: Pain 4 or less Pain Plan: HYDROMORPHONE Tomorrow's Labs & Rationales: CBC BEP Daniel Smith MD 07/02/18 2241: Attending MD Review Statement Attending Statement Attending MD Statement: examined this patient, discuss w/resident/PA/WEB PRESS OPERATOR HELPER OFFSET, agreed w/resident/PA/WEB PRESS OPERATOR HELPER OFFSET, reviewed EMR data (avail), discussed with nursing, discussed with case mgmt, amended to note Attending Assessment/Plan: The patient was seen and discussed with house staff, nursing, and case management. Still was febrile and thus will continue IV Ceftriaxone. Await urine cultures. Significant improvement in symptoms post urologic procedure yesterday.
[2018-07-02 15:44] VITALS: BP 120/70
[2018-07-02 22:27] VITALS: BP 120/80
[2018-07-03 05:56] VITALS: BP 148/98
--- NOTE | 2018-07-03 06:42 | PN- Housestaff ---
Chalo Mackenzie 07/03/18 0640: Subjective Follow-up For: Right Renal Calculi Pyelonephritis Subjective: I visited the patient is morning, he was lying back in his bed, alert and oriented 3, in no acute distress. He did not have any complaints of pain in right lower quadrant. He was concerned that his urine output from 4:00 this morning has decreased. He also had a spike of fever overnight. No reports of complaints of chest pain, lightheadedness, dizziness, or vertigo, shortness of breath. Review of Systems Constitutional: Reports: see HPI. Objective Last 24 Hrs of Vital Signs/I&O Vital Signs Date Time Temp Pulse Resp B/P B/P Pulse O2 O2 Flow FiO2 Mean Ox Delivery Rate 07/03 0636 99.0 07/03 0556 100.9 91 20 148/98 94 Room Air 07/03 0548 100.9 07/02 2227 99.1 80 19 120/80 96 Room Air 07/02 1617 99.7 07/02 1544 101.5 107 18 120/70 93 07/02 1518 101.5 Intake & Output 07/03 1600 07/03 0800 07/03 0000 Intake Total 960 1080 Output Total 900 1000 Balance 60 80 Intake, IV 600 600 Intake, Oral 360 480 Output, Urine 900 1000 Physical Exam General Appearance: Alert, Oriented X3, Cooperative, No Acute Distress Skin: No Rashes Skin Temp/Moisture Exam: Warm/Dry Sepsis Skin Exam (color): Normal for Ethnicity HEENT: Atraumatic Neck: Supple, No JVD Cardiovascular: Regular Rate, Normal S1, Normal S2 Lungs: Clear to Auscultation, Normal Air Movement Abdomen: Normal Bowel Sounds, Soft Neurological: Normal Gait, Normal Speech, Normal Tone, Sensation Intact Extremities: No Clubbing, No Cyanosis, No Edema, Normal Pulses, No Tenderness/ Swelling Vascular: Normal Pulses, Pulses Symmetrical Assessment/Plan Assessment: 52 year old male with no PMH presents to the ED with one day history of nausea/ vomiting and abdominal pain. He states he ate an egg this morning and didn't feel well shortly after. He reports 3-4 episodes of non bloody emesis with associated sweats starting at 13:00. He reports his abdominal pain is right sided and does not radiate to his back or his groin. He denies any history of kidney stones. ED work up found right sided renal stones with associated hydroureteronephrosis. Right renal calculi: Plan: Urine strainer, Ketorolac, Zofran, IV fluid hydration NS 75cc/hr, Urine culture, blood culture, NPO after MN (in case urology wants to perform a procedure), Urology consult placed Urologist took him to the OR and ureteroscopy with laser lithotripsy and stone extraction with stent placement, retrograde pyelogram was done. The following are the findings from urologist: Large lower pole right renal stone adherent to the calyx and 2 smaller ureteral stones that were presumably pushed into the kidney. No large stone fragments appreciated at the end of the procedure. There was bleeding that made visualization difficult. Pyelonephritis: Pyelonephritis is probably caused by the underlying obstructive uropathy. He had one spike a fever to 102.8 overnight, and a fever of 101.5 on July 02. Urine culture and blood culture were negative after 1 day. For a negative culture could be obstruction in his kidney which did not lead to bacteria to go to the urine stream and make to urine culture positive. Plan: The patient is on IV ceftriaxone, we will change the antibiotic to p.o. once he is afebrile. Hypokalemia: Potassium was 3.2---3.0 Plan: P.o. potassium chloride tablet was given. Constipation: Plan: Senna S, MiraLAX Problem List: 1. Renal calculus, right 2. Abdominal pain with vomiting 3. Pyelonephritis Pain Ratin Pain Location: Right lower quadrant Pain Goal: Pain 4 or less Pain Plan: Hydromorphone Tomorrow's Labs & Rationales: As indicated Daniel Smith MD 07/03/18 1634: Attending MD Review Statement Attending Statement Attending MD Statement: examined this patient, discuss w/resident/PA/SHOE REPAIRER, agreed w/resident/PA/SHOE REPAIRER, reviewed EMR data (avail), discussed with nursing, discussed with case mgmt, amended to note Attending Assessment/Plan: The patient was seen and discussed with house staff, nursing, and case management. Still with some fevers, however decreasing (99 now). RN states whitish urine (?stones). WBC decreased. Will change to po Cipro at present and follow temp. Re-check urinalysis/culture. May need more imaging. Will request Urology follow-up.
[2018-07-03 10:38] LABS: ABSOLUTE BASOPHIL COUNT 0 /CUMM (0.0-0.2); ABSOLUTE EOSINOPHIL COUNT 0 /CUMM (0.0-0.7); ABSOLUTE LYMPH COUNT 0.9 /CUMM (1.2-3.4); ABSOLUTE MONOCYTE COUNT 0.5 /CUMM (0.10-0.60); BASOPHIL % 0.1 % (0.0-2.0); EOSINOPHIL % 0.1 % (0-5)
[2018-07-03 10:54] LABS: ABSOLUTE GRANULOCYTE CT 8.8 /CUMM (1.4-6.5); MEAN CORPUSCULAR HGB 29.8 PG (27.0-31.0); MEAN CORPUSCULAR HGB CONC 34.7 G/DL (33.0-37.0); MEAN CORPUSCULAR VOLUME 85.9 FL (80.0-94.0); MEAN PLATELET VOLUME 9.6 FL (7.4-10.4); PLATELET COUNT 152 /CUMM (130-400); RBC DISTRIBUTION WIDTH 12.8 % (11.5-14.5); RED BLOOD CELL CT 3.87 /CUMM (4.70-6.10); WHITE BLOOD CELL COUNT 10.2 /CUMM (4.8-10.8)
[2018-07-03 10:59] LABS: HEMATOCRIT 33.3 % (42-52)
[2018-07-03 12:01] LABS: GRANULOCYTE % 86.1 % (42.2-75.2)
[2018-07-03 14:20] VITALS: BP 146/78
[2018-07-03 20:40] VITALS: BP 140/94
[2018-07-03 21:15] VITALS: BP 150/92
[2018-07-04 06:42] VITALS: BP 162/94
--- NOTE | 2018-07-04 07:09 | PN- Housestaff ---
Chalo Mackenzie 07/04/18 0708: Subjective Follow-up For: Right Renal Calculi Pyelonephritis Subjective: I saw the patient this morning, he was lying back in his bed, alert and oriented He has no pain or tenderness abdomen or CVA. Highest temperature was 99.2. No major complaints overnight. He has normal bowel movement now. Review of Systems Constitutional: Reports: see HPI. Objective Last 24 Hrs of Vital Signs/I&O Vital Signs Date Time Temp Pulse Resp B/P B/P Pulse O2 O2 Flow FiO2 Mean Ox Delivery Rate 07/04 0642 99.2 73 20 162/94 96 07/03 2115 99.5 84 16 150/92 07/03 2040 99.3 80 20 140/94 96 07/03 1435 99.3 07/03 1420 99.3 89 20 146/78 95 Room Air 07/03 1214 99.7 Intake & Output 07/04 0800 07/04 0000 07/03 1600 Intake Total 764 805 6584 Output Total 400 1950 2150 Balance 200 -1800 -825 Intake, IV 600 150 525 Intake, Oral 800 Number 1 Bowel Movements Output, Urine 400 1950 2150 Physical Exam General Appearance: Alert, Oriented X3, Cooperative, No Acute Distress Skin: No Rashes Skin Temp/Moisture Exam: Warm/Dry Cardiovascular: Regular Rate, Normal S1, Normal S2 Lungs: Clear to Auscultation, Normal Air Movement Abdomen: Normal Bowel Sounds, Soft, No Tenderness, no CVA tenderness Extremities: No Clubbing, No Cyanosis, No Edema, Normal Pulses, No Tenderness/ Swelling Assessment/Plan Assessment: 52 year old male with no PMH presents to the ED with one day history of nausea/ vomiting and abdominal pain. He states he ate an egg this morning and didn't feel well shortly after. He reports 3-4 episodes of non bloody emesis with associated sweats starting at 13:00. He reports his abdominal pain is right sided and does not radiate to his back or his groin. He denies any history of kidney stones. ED work up found right sided renal stones with associated hydroureteronephrosis. Right renal calculi: Plan: Urine strainer, Ketorolac, Zofran, IV fluid hydration NS 75cc/hr, increased to 125 cc/hr, Urine culture, blood culture, NPO after MN (in case urology wants to perform a procedure), Urology consult placed I talked to Dr. Jacinto on the phone about the patient, she said that she is going to review the ultrasound and images, and if anything needs to be done she will take care of. Urology consult appreciated, we will refer the patient to continue with Dr. Jacinto as outpatient. Urologist took him to the OR and ureteroscopy with laser lithotripsy and stone extraction with stent placement, retrograde pyelogram was done. The following are the findings from urologist: Large lower pole right renal stone adherent to the calyx and 2 smaller ureteral stones that were presumably pushed into the kidney. No large stone fragments appreciated at the end of the procedure. There was bleeding that made visualization difficult. Pyelonephritis: Pyelonephritis is probably caused by the underlying obstructive uropathy. He had one spike a fever to 102.8 overnight, and a fever of 101.5 on July 02. Next day the highest fever was at 99.2, urine culture and blood culture were negative after 1 day. For a negative culture could be obstruction in his kidney which did not lead to bacteria to go to the urine stream and make to urine culture positive. Plan: The patient is on IV ceftriaxone, we changed ceftriaxone to ciprofloxacin, and the fevers are trending down. ID consult appreciated, we will continue ciprofloxacin for 10 more days which will be till July 14. Hypokalemia: Potassium was 3.2---3.0---3.8 Plan: P.o. potassium chloride tablet was given. Constipation: Probably is induced by the narcotics given at the hospital plus the pain the patient has. Plan: Senna S, MiraLAX Problem List: 1. Renal calculus, right 2. Abdominal pain with vomiting 3. Pyelonephritis Pain Ratin Pain Location: RLQ Pain Goal: decrease Pain Plan: As indicated Tomorrow's Labs & Rationales: CBC Daniel Cintron MD 07/04/18 6598: Attending MD Review Statement Attending Statement Attending MD Statement: examined this patient, discuss w/resident/PA/OFFICE INSPECTOR, agreed w/resident/PA/OFFICE INSPECTOR, reviewed EMR data (avail), discussed with nursing, discussed with case mgmt, amended to note Attending Assessment/Plan: The patient was seen and discussed with house staff, nursing, and case management. Appreciate Urology follow-up and ID input. Still with persistent low grade fever- renal US as above with persistent hydro. Cr decreased- post obstructive diuresis less (urine output is slowing). Will continue Cipro as per ID/Urology.
--- NOTE | 2018-07-04 07:20 | Discharge Summary ---
Visit Information Visit Dates Admission Date: 06/30/18 Discharge Date: 07/05/18 Hospital Course Course Attending Physician: Daniel Smith MD Primary Care Physician: Jian RUIZ,Daniel Noel Consulting Request: Consulting Specialty: Urology Consulting Physician: Radha Jacinto MD Reason for Consult: Ostructive uropathy Hospital Course: 52 year old male with no PMH presents to the ED with one day history of nausea/ vomiting and abdominal pain. He states he ate an egg this morning and didn't feel well shortly after. He reports 3-4 episodes of non bloody emesis with associated sweats starting at 13:00. He reports his abdominal pain is right sided and does not radiate to his back or his groin. He denies any history of kidney stones. ED work up found right sided renal stones with associated hydroureteronephrosis. Right renal calculi: Plan: Urine strainer, Ketorolac, Zofran, IV fluid hydration NS 75cc/hr, increased to 125 cc/hr, Urine culture, blood culture, NPO after MN (in case urology wants to perform a procedure), Urology consult placed I talked to Dr. Jacinto on the phone about the patient, she said that she is going to review the ultrasound and images, and if anything needs to be done she will take care of. Urology consult appreciated, we will refer the patient to continue with Dr. Jacinto as outpatient. I discussed the case with Dr. Lopez, he called Dr. Marks, he personally visited the patient and the patient is discharged. Urologist took him to the OR and ureteroscopy with laser lithotripsy and stone extraction with stent placement, retrograde pyelogram was done. The following are the findings from urologist: Large lower pole right renal stone adherent to the calyx and 2 smaller ureteral stones that were presumably pushed into the kidney. No large stone fragments appreciated at the end of the procedure. There was bleeding that made visualization difficult. Pyelonephritis: Pyelonephritis is probably caused by the underlying obstructive uropathy. He had one spike a fever to 102.8 overnight, and a fever of 101.5 on July 02. Next day the highest fever was at 99.2, urine culture and blood culture were negative after 1 day. For a negative culture could be obstruction in his kidney which did not lead to bacteria to go to the urine stream and make to urine culture positive. Plan: The patient is on IV ceftriaxone, we changed ceftriaxone to ciprofloxacin, and the fevers are trending down. ID consult appreciated, we will continue ciprofloxacin for 10 more days which will be till July 14. Hypokalemia: Potassium was 3.2---3.0---3.8 Plan: P.o. potassium chloride tablet was given. Constipation: Probably is induced by the narcotics given at the hospital plus the pain the patient has. Plan: Senna S, MiraLAX Allergies: Coded Allergies: No Known Allergies (06/30/18) Significant Procedures: Name of Procedure: ureteroscopy with laser lithotripsy and stone extraction with stent placement, retrograde pyelogram Pre-Operative Diagnosis: right ureteral stones Post-Operative Diagnosis: right kidney and ureteral stones Estimated Blood Loss: less than 50ml Surgeon/Publisher Assistant: Radha Jacinto Findings: Large lower pole right renal stone adherent to the calyx and 2 smaller ureteral stones that were presumably pushed into the kidney. No large stone fragments appreciated at the end of the procedure. There was bleeding that made visualization difficult. Pertinent Lab Results: Creatinine: 1.2--->1.1--->1.2--->1.6--->1.5--->1.5 Disposition Summary Disposition Principal Diagnosis: Obstructive uropathy Pyelonephritis Additional Diagnosis: Hydronephrosis secondary to obstructive uropathy Discharge Disposition: home or self care Discharge Instructions General Discharge Information Code Status: Full Code Patient's Diet: Regular diet Patient's Activity: As tolerated Follow-Up Instructions/Appts: Please take ciprofloxacin for 9 more days 500 mg twice daily Please follow-up with your urologist in 1-2 weeks, they will reimage your kidney to see if you have residual obstructive uropathy. Please follow-up with your PCP Please call your urologist if you have any worsening of your symptoms. Medications at Discharge Discharge Medications: Continue taking these medications: Naphazoline HCl/Pheniramine (Naphcon-A Eye Drops) 0.025 %-0.3 % DROPS 1 DROP Both Eyes TWICE DAILY Comments: DID NOT TAKE IN THE HOSPITAL Start taking the following new medications: Ciprofloxacin HCl (Cipro) 500 MG TABLET 500 Milligram ORAL TWICE DAILY Qty = 19 No Refills Comments: Last Taken:07/05/18 Time:0914 AM Please take 1 tab in the PM on 07/05 Then take 1 tab in AM and 1 tab in PM Sennosides/Docusate Sodium (Senna Plus Tablet) 8.6 MG-50 MG TABLET 1 Tablet ORAL TWICE DAILY as needed for CONSTIPATION Qty = 30 No Refills Comments: Last Taken:07/05/18 Time:0714 AM Bisacodyl (Dulcolax) 5 MG TABLET.DR 2 Tablet ORAL As Directed as needed for CONSTIPATION Qty = 30 No Refills Comments: DID NOT TAKE IN THE HOSPITAL Copies To: Jian RUIZ,Daniel Noel
[2018-07-04 08:52] LABS: ABSOLUTE BASOPHIL COUNT 0 /CUMM (0.0-0.2); ABSOLUTE EOSINOPHIL COUNT 0.1 /CUMM (0.0-0.7); ABSOLUTE LYMPH COUNT 0.8 /CUMM (1.2-3.4); ABSOLUTE MONOCYTE COUNT 0.6 /CUMM (0.10-0.60); BASOPHIL % 0.2 % (0.0-2.0); EOSINOPHIL % 0.8 % (0-5); GRANULOCYTE % 79.8 % (42.2-75.2); HEMATOCRIT 34.4 % (42-52); MEAN CORPUSCULAR HGB 29.8 PG (27.0-31.0); MEAN CORPUSCULAR HGB CONC 34.8 G/DL (33.0-37.0); MEAN CORPUSCULAR VOLUME 85.6 FL (80.0-94.0); MEAN PLATELET VOLUME 8.9 FL (7.4-10.4); PLATELET COUNT 192 /CUMM (130-400); RBC DISTRIBUTION WIDTH 12.9 % (11.5-14.5); RED BLOOD CELL CT 4.01 /CUMM (4.70-6.10); WHITE BLOOD CELL COUNT 7.5 /CUMM (4.8-10.8)
--- NOTE | 2018-07-04 13:56 | Cons- Infect Disease ---
General Information and HPI Consulting Request Date of Consult: 07/04/18 Requested By: Daniel Smith MD Reason for Consult: Rule out urinary tract infection Source of Information: patient History of Present Illness: This is a 52-year-old man with no past medical history admitted on June 30 after presenting to the emergency room with one day of right lower quadrant abdominal pain, nausea and vomiting. On admission he was afebrile. Laboratory data revealed a white blood cell count of 12,000, BUN/creatinine 22 and 1.2, with normal liver enzymes. Urinalysis 3-5 RBC/15-[address] of the abdomen and pelvis revealed right-sided obstructive uropathy with 2 calculi within the proximal right ureter, with right-sided perinephric and proximal right periureteral stranding. He was begun on Ceftriaxone and was taken to the OR on July 01 for a ureteroscopy with laser lithotripsy, stone extraction and stent placement. Postop he spiked a fever to 102.8, but he has gradually defervesced. His white blood cell count has also normalized. On July 03 the Ceftriaxone was discontinued and he was placed on Ciprofloxacin. He does note some persistent right lower quadrant discomfort, though this has improved, and he has passed blood clots through the urethra. Allergies/Medications Allergies: Coded Allergies: No Known Allergies (06/30/18) Home Med List: Naphazoline HCl/Pheniramine (Naphcon-A Eye Drops) 0.025 %-0.3 % DROPS 1 DROP OU BID EYES (Reported) Past History Travel History Traveled to [place] past 21 day No Medical History Neurological: NONE EENT: NONE Cardiovascular: NONE Respiratory: NONE Gastrointestinal: NONE Hepatic: NONE Renal: NONE Musculoskeletal: NONE Psychiatric: NONE Endocrine: NONE Blood Disorders: NONE Cancer(s): NONE CONTROL ROOM TECHNICIAN/Reproductive: NONE History of MRSA: No History of VRE: No History of CDIFF: No Isolation History: Standard Surgical History Surgical History: none Psychosocial History Where Do You Live? Home Who Do You Live With? spouse Services at Home: None Smoking Status: Never Smoked ETOH Use: denies use Illicit Drug Use: denies illicit drug use Review of Systems Review of Systems GI: Reports: constipation. All Other Systems: Reviewed and Negative Exam & Diagnostic Data Last 24 Hrs of Vital Signs/I&O Vital Signs Date Time Temp Pulse Resp B/P B/P Pulse O2 O2 Flow FiO2 Mean Ox Delivery Rate 07/04 0642 99.2 73 20 162/94 96 07/03 2115 99.5 84 16 150/92 07/03 2040 99.3 80 20 140/94 96 07/03 1435 99.3 07/03 1420 99.3 89 20 146/78 95 Room Air Intake & Output 07/04 1600 07/04 0800 07/04 0000 Intake Total 600 150 Output Total 0724 202 3439 Balance -1100 200 -1800 Intake, IV 600 150 Number 1 Bowel Movements Output, Urine 8187 155 4062 Physical Exam Other Physical Findings: He is awake and alert in no acute distress. He is afebrile. Skin reveals no rash. HEENT exam is negative. Neck is supple with no adenopathy. Lungs are clear. Heart regular rhythm with no murmur. Abdomen is soft, nontender with positive bowel sounds. Back no CVA tenderness. Extremities no cyanosis, clubbing or edema. Neuro is without focality. Last 24 Hours of Lab Results: Laboratory Tests 07/04 07/03 0820 1723 Chemistry Sodium (137 - 145 mmol/L) 137 Potassium (3.5 - 5.1 mmol/L) 3.8 Chloride (98 - 107 mmol/L) 107 Carbon Dioxide (22 - 30 mmol/L) 22 Anion Gap (5 - 16) 7 BUN (9 - 20 mg/dL) 19 Creatinine (0.7 - 1.2 mg/dL) 1.5 H Estimated GFR (>60 ml/min) 49 L BUN/Creatinine Ratio (7 - 25 %) 12.7 Hematology CBC w Diff NO MAN DIFF REQ WBC (4.8 - 10.8 /CUMM) 7.5 RBC (4.70 - 6.10 /CUMM) 4.01 L Hgb (14.0 - 18.0 G/DL) 12.0 L Hct (42 - 52 %) 34.4 L MCV (80.0 - 94.0 FL) 85.6 MCH (27.0 - 31.0 PG) 29.8 MCHC (33.0 - 37.0 G/DL) 34.8 RDW (11.5 - 14.5 %) 12.9 Plt Count (130 - 400 /CUMM) 192 MPV (7.4 - 10.4 FL) 8.9 Gran % (42.2 - 75.2 %) 79.8 H Lymphocytes % (20.5 - 51.1 %) 10.9 L Monocytes % (1.7 - 9.3 %) 8.3 Eosinophils % (0 - 5 %) 0.8 Basophils % (0.0 - 2.0 %) 0.2 Absolute Granulocytes (1.4 - 6.5 /CUMM) 6.0 Absolute Lymphocytes (1.2 - 3.4 /CUMM) 0.8 L Absolute Monocytes (0.10 - 0.60 /CUMM) 0.6 Absolute Eosinophils (0.0 - 0.7 /CUMM) 0.1 Absolute Basophils (0.0 - 0.2 /CUMM) 0 Urines Urine Color (YEL,AMB,STR) BLDY H Urine Clarity (CLEAR) CLDY H Urine pH (5.0 - 8.0) 7.0 Ur Specific Lorenzo (1.001 - 1.035) 1.015 Urine Protein (NEG,<30 MG/DL) 100 H Urine Ketones (NEG) NEG Urine Nitrite (NEG) POS H Urine Bilirubin (NEG) NEG Urine Urobilinogen (0.1 - 1.0 EU/dl) 0.2 Ur Leukocyte Esterase (NEG) TRACE H Ur Microscopic SEDIMENT EXAMINED Urine RBC (0 - 5 /HPF) PACKD H Urine WBC (0 - 2 /HPF) 15-25 H Ur Epithelial Cells (NONE,FEW) FEW Urine Bacteria (NEG/NONE) FEW H Urine Hemoglobin (NEG) LARGE H Urine Glucose (N MG/DL) NEG Last 24 Hours of Lionel Results: Blood cultures 2 June 30 negative Urine culture June 30 negative Urine culture July 03 negative Diagnostic Data Recent Imaging Findings: CT of the abdomen and pelvis revealed right-sided obstructive uropathy with 2 calculi within the proximal right ureter, with right-sided perinephric and proximal right periureteral stranding. Assessment/Plan Assessment/Plan Impression: This is a 52-year-old man with no past medical history admitted on June 30 with one day of right lower quadrant abdominal pain, nausea and vomiting, found to be afebrile with a mild leukocytosis, pyuria and a CT of the abdomen and pelvis revealing right-sided obstructive uropathy with 2 calculi within the proximal right ureter, status post ureteroscopy with laser lithotripsy, stone extraction and stent placement on the next-day, with postop fevers, which have resolved, and with his urine culture from admission negative. His fevers were presumably secondary to a urinary tract infection in the setting of obstruction. His initial urine culture was negative, most likely secondary to the obstruction of the right kidney, and, unfortunately, no urine was sent from the OR. The repeat urine culture, sent yesterday, will likely remain negative as he had already been on antibiotics for several days. As he appears to be doing well on the Ciprofloxacin, this can be continued to complete a 14 day course of antibiotics. He is apparently scheduled for a follow-up ultrasound today, presumably to evaluate the hydronephrosis. Suggestion: 1. Follow-up renal ultrasound 2. Follow-up final urine culture 3. Continue Ciprofloxacin for 10 more days Consult Acknowledgment - Thank you for your consult request.
--- NOTE | 2018-07-04 14:15 | ULTRASOUND REPORT ---
EXAMINATION: US RETROPERITONEAL COMPLETE (RENAL) CLINICAL INFORMATION: Status post lithotripsy and stent. Assess for hydronephrosis. COMPARISON: CT scan of the abdomen and pelvis 06/30/2018. TECHNIQUE: Real-time grayscale and Doppler ultrasound imaging of the kidneys and bladder was obtained. FINDINGS: RIGHT KIDNEY: 13.2 x 6.9 x 6.9 cm (SAG x AP x TRV). The kidney is slightly prominent. It has normal contour and echogenicity. Renal cortical thickness is normal. There is hydronephrosis. There are no focal parenchymal lesions. There are multiple echogenic 6 calculi, the largest at the lower pole measuring 0.4 cm. A ureteric stent is noted in position. LEFT KIDNEY: 11.9 x 6.9 x 4.5 cm (SAG x AP x TRV). The kidney is normal in size, contour, and echogenicity. Renal cortical thickness is normal. There is no hydronephrosis. There are multiple echogenic calculi, the largest at the midpole measuring 0.3 cm. BLADDER: Well-distended and normal. The left ureteric jet was demonstrated. The right jet was not visualized. Prevoid bladder volume is 174 mL. The prostate is is mildly prominent, measuring 5.5 cm, with a mildly prominent volume of 51 mL. IMPRESSION: 1. There is right-sided hydronephrosis. A right-sided ureteric stent is in position. 2. There are bilateral echogenic renal calculi. 3. There is mild prostatomegaly.
--- NOTE | 2018-07-04 14:54 | PN- Urology ---
Subjective Subjective: Pt feeling better. No N/V/F/C. Some sensation of the right stent. Review of Systems Constitutional: Reports: no symptoms. EENTM: Reports: no symptoms. Cardiovascular: Reports: no symptoms. Respiratory: Reports: no symptoms. Gastrointestinal: Reports: no symptoms. Genitourinary: Reports: frequency. Musculoskeletal: Reports: back pain. Skin: Reports: no symptoms. Neurological/Psychological: Reports: no symptoms. Hematologic/Endocrine: Reports: no symptoms. Immunologic/Allergic: Reports: no symptoms. Objective Vital Signs and I&Os Vital Signs Date Time Temp Pulse Resp B/P B/P Pulse O2 O2 Flow FiO2 Mean Ox Delivery Rate 07/04 0642 99.2 73 20 162/94 96 07/03 2115 99.5 84 16 150/92 07/03 2040 99.3 80 20 140/94 96 Intake & Output 07/04 1600 07/04 0800 07/04 0000 07/03 1600 07/03 0800 07/03 0000 Intake Total 366 039 5172 960 1080 Output Total 8851 826 1673 2150 900 1000 Balance -1100 200 -1800 -825 60 80 Intake, IV 600 150 525 600 600 Intake, Oral 800 360 480 Number 1 1 Bowel Movements Output, Urine 4486 930 2109 2150 900 1000 Physical Exam General Appearance: well developed/nourished, no apparent distress, alert, awake , comfortable Head: atraumatic, normal appearance Ears, Nose, Throat: normal ENT inspection Neck: normal inspection Respiratory: no respiratory distress Abdomen: soft, non-tender Rectal: deferred Back: normal inspection Extremities: normal inspection Neurologic/Psychiatric: awake, alert, oriented x 3 Skin: intact, normal color, warm/dry Reproductive: Normal male genitalia Current Medications: Current Medications Sig/José Manuel Start time Last Medication Dose Route Stop Time Status Admin Acetaminophen 650 MG Q6P PRN 06/30 2300 AC 07/03 PO 1214 Ciprofloxacin 500 MG BID 07/03 09 AC 07/04 PO 07/07 0859 0923 Heparin Sodium 5,000 UNIT Q8 07/01 0600 AC 07/04 (Porcine) SC 0539 Hydromorphone HCl 1 MG Q6P PRN 06/30 2300 AC IV Ketorolac 15 MG Q6P PRN 06/30 2300 DC 07/02 Tromethamine IV 2009 Ondansetron HCl 4 MG Q6P PRN 06/30 2300 AC IV Polyethylene Glycol 17 GM DAILY 07/02 1643 DC 07/02 PO 1757 Potassium Chloride 40 MEQ Q4 07/03 1400 DC 07/03 PO 07/03 1801 1741 Senna/Docusate Sodium 1 TAB BID 07/02 2100 AC 07/04 PO 0923 Sodium Chloride 1,000 ML .Q8H 06/30 2300 AC 07/04 IV 0945 Results Last 48 Hours of Labs: Laboratory Tests 07/04 07/03 0820 1723 Chemistry Sodium (137 - 145 mmol/L) 137 Potassium (3.5 - 5.1 mmol/L) 3.8 Chloride (98 - 107 mmol/L) 107 Carbon Dioxide (22 - 30 mmol/L) 22 Anion Gap (5 - 16) 7 BUN (9 - 20 mg/dL) 19 Creatinine (0.7 - 1.2 mg/dL) 1.5 H Estimated GFR (>60 ml/min) 49 L BUN/Creatinine Ratio (7 - 25 %) 12.7 Hematology CBC w Diff NO MAN DIFF REQ WBC (4.8 - 10.8 /CUMM) 7.5 RBC (4.70 - 6.10 /CUMM) 4.01 L Hgb (14.0 - 18.0 G/DL) 12.0 L Hct (42 - 52 %) 34.4 L MCV (80.0 - 94.0 FL) 85.6 MCH (27.0 - 31.0 PG) 29.8 MCHC (33.0 - 37.0 G/DL) 34.8 RDW (11.5 - 14.5 %) 12.9 Plt Count (130 - 400 /CUMM) 192 MPV (7.4 - 10.4 FL) 8.9 Gran % (42.2 - 75.2 %) 79.8 H Lymphocytes % (20.5 - 51.1 %) 10.9 L Monocytes % (1.7 - 9.3 %) 8.3 Eosinophils % (0 - 5 %) 0.8 Basophils % (0.0 - 2.0 %) 0.2 Absolute Granulocytes (1.4 - 6.5 /CUMM) 6.0 Absolute Lymphocytes (1.2 - 3.4 /CUMM) 0.8 L Absolute Monocytes (0.10 - 0.60 /CUMM) 0.6 Absolute Eosinophils (0.0 - 0.7 /CUMM) 0.1 Absolute Basophils (0.0 - 0.2 /CUMM) 0 Urines Urine Color (YEL,AMB,STR) BLDY H Urine Clarity (CLEAR) CLDY H Urine pH (5.0 - 8.0) 7.0 Ur Specific [place] (1.001 - 1.035) 1.015 Urine Protein (NEG,<30 MG/DL) 100 H Urine Ketones (NEG) NEG Urine Nitrite (NEG) POS H Urine Bilirubin (NEG) NEG Urine Urobilinogen (0.1 - 1.0 EU/dl) 0.2 Ur Leukocyte Esterase (NEG) TRACE H Ur Microscopic SEDIMENT EXAMINED Urine RBC (0 - 5 /HPF) PACKD H Urine WBC (0 - 2 /HPF) 15-25 H Ur Epithelial Cells (NONE,FEW) FEW Urine Bacteria (NEG/NONE) FEW H Urine Hemoglobin (NEG) LARGE H Urine Glucose (N MG/DL) NEG 07/03 0850 Chemistry Sodium (137 - 145 mmol/L) 136 L Potassium (3.5 - 5.1 mmol/L) 3.2 L Chloride (98 - 107 mmol/L) 107 Carbon Dioxide (22 - 30 mmol/L) 22 Anion Gap (5 - 16) 7 BUN (9 - 20 mg/dL) 20 Creatinine (0.7 - 1.2 mg/dL) 1.6 H Estimated GFR (>60 ml/min) 45 L BUN/Creatinine Ratio (7 - 25 %) 12.5 Hematology CBC w Diff NO MAN DIFF REQ WBC (4.8 - 10.8 /CUMM) 10.2 RBC (4.70 - 6.10 /CUMM) 3.87 L Hgb (14.0 - 18.0 G/DL) 11.6 L Hct (42 - 52 %) 33.3 L MCV (80.0 - 94.0 FL) 85.9 MCH (27.0 - 31.0 PG) 29.8 MCHC (33.0 - 37.0 G/DL) 34.7 RDW (11.5 - 14.5 %) 12.8 Plt Count (130 - 400 /CUMM) 152 MPV (7.4 - 10.4 FL) 9.6 Gran % (42.2 - 75.2 %) 86.1 H Lymphocytes % (20.5 - 51.1 %) 8.7 L Monocytes % (1.7 - 9.3 %) 5.0 Eosinophils % (0 - 5 %) 0.1 Basophils % (0.0 - 2.0 %) 0.1 Absolute Granulocytes (1.4 - 6.5 /CUMM) 8.8 H Absolute Lymphocytes (1.2 - 3.4 /CUMM) 0.9 L Absolute Monocytes (0.10 - 0.60 /CUMM) 0.5 Absolute Eosinophils (0.0 - 0.7 /CUMM) 0 Absolute Basophils (0.0 - 0.2 /CUMM) 0 Recent Imaging Studies: Renal US RIGHT KIDNEY: 13.2 x 6.9 x 6.9 cm (SAG x AP x TRV). The kidney is slightly prominent. It has normal contour and echogenicity. Renal cortical thickness is normal. There is hydronephrosis. There are no focal parenchymal lesions. There are multiple echogenic 6 calculi, the largest at the lower pole measuring 0.4 cm. A ureteric stent is noted in position. LEFT KIDNEY: 11.9 x 6.9 x 4.5 cm (SAG x AP x TRV). The kidney is normal in size, contour, and echogenicity. Renal cortical thickness is normal. There is no hydronephrosis. There are multiple echogenic calculi, the largest at the midpole measuring 0.3 cm. BLADDER: Well-distended and normal. The left ureteric jet was demonstrated. The right jet was not visualized. Prevoid bladder volume is 174 mL. The prostate is is mildly prominent, measuring 5.5 cm, with a mildly prominent volume of 51 mL. IMPRESSION: 1. There is right-sided hydronephrosis. A right-sided ureteric stent is in position. 2. There are bilateral echogenic renal calculi. 3. There is mild prostatomegaly. Assessment/Plan Assessment/Plan 52yo male with obstructing right proximal stones and kidney stones bilaterally on CT scan with positive urinalysis s/p Right URS with laser lithotripsy and stone extraction with stent placement with postop fevers that are trending down. His hydronephrosis is improved but present with stent in place. He still has residual stones remaining which i had informed patient of postoperatively. He had multiple hard stones and the bleeding made it difficult to continue. He will likely need a second procedure in the future but may be able to address with ESWL vs URS at the next session. Recommend continuing antibiotics for a total of ten days given his positive urine preop and fevers to treat presumeably pyelopnephritis. FU with [facility] as an outpt. Core Measures Venous Thromboembolism VTE Risk Factors Acute Medical Illness No Mechanical VTE Prophylaxis d/t N/A MechProphylax Ordered No VTE Pharm Prophylaxis d/t NA PharmProphylax ordered
[2018-07-04 15:25] VITALS: BP 150/94
[2018-07-04 22:09] VITALS: BP 142/90
[2018-07-05 06:11] VITALS: BP 152/98
--- NOTE | 2018-07-05 07:08 | PN- Housestaff ---
Chalo Mackenzie 07/05/18 0706: Subjective Follow-up For: Right Renal Calculi Pyelonephritis Subjective: I visited and examined the patient is morning, he was lying back in his bed, alert and oriented 3, in no acute distress. He was still complaining of passing blood clots with urine. Minimal abdominal right lower quadrant pain to 1/10, no nausea, no vomiting, no chills, no fever. Review of Systems Constitutional: Reports: see HPI. Objective Last 24 Hrs of Vital Signs/I&O Vital Signs Date Time Temp Pulse Resp B/P B/P Pulse O2 O2 Flow FiO2 Mean Ox Delivery Rate 07/05 0611 99.3 70 18 152/98 96 Room Air 07/04 2209 99.6 74 18 142/90 96 Intake & Output 07/05 1600 07/05 0800 07/05 0000 Intake Total 1480 1400 Output Total 2100 2000 Balance -620 -600 Intake, IV 1000 1000 Intake, Oral 480 400 Output, Urine 2100 1999 Patient 134 lb Weight Physical Exam General Appearance: Alert, Oriented X3, Cooperative, No Acute Distress Cardiovascular: Regular Rate, Normal S1, Normal S2 Lungs: Clear to Auscultation, Normal Air Movement Abdomen: Normal Bowel Sounds, Soft, No Tenderness, No Hepatospenomegaly, No Masses Extremities: No Clubbing, No Cyanosis, No Edema, Normal Pulses, No Tenderness/ Swelling Assessment/Plan Assessment: 52 year old male with no PMH presents to the ED with one day history of nausea/ vomiting and abdominal pain. He states he ate an egg this morning and didn't feel well shortly after. He reports 3-4 episodes of non bloody emesis with associated sweats starting at 13:00. He reports his abdominal pain is right sided and does not radiate to his back or his groin. He denies any history of kidney stones. ED work up found right sided renal stones with associated hydroureteronephrosis. Right renal calculi: Plan: Urine strainer, Ketorolac, Zofran, IV fluid hydration NS 75cc/hr, increased to 125 cc/hr, Urine culture, blood culture, NPO after MN (in case urology wants to perform a procedure), Urology consult placed I talked to Dr. Jacinto on the phone about the patient, she said that she is going to review the ultrasound and images, and if anything needs to be done she will take care of. Urology consult appreciated, we will refer the patient to continue with Dr. Jacinto as outpatient. I discussed the case with Dr. Lopez, he called Dr. Marks, he personally visited the patient and the patient is discharged. Urologist took him to the OR and ureteroscopy with laser lithotripsy and stone extraction with stent placement, retrograde pyelogram was done. The following are the findings from urologist: Large lower pole right renal stone adherent to the calyx and 2 smaller ureteral stones that were presumably pushed into the kidney. No large stone fragments appreciated at the end of the procedure. There was bleeding that made visualization difficult. Pyelonephritis: Pyelonephritis is probably caused by the underlying obstructive uropathy. He had one spike a fever to 102.8 overnight, and a fever of 101.5 on July 02. Next day the highest fever was at 99.2, urine culture and blood culture were negative after 1 day. For a negative culture could be obstruction in his kidney which did not lead to bacteria to go to the urine stream and make to urine culture positive. Plan: The patient is on IV ceftriaxone, we changed ceftriaxone to ciprofloxacin, and the fevers are trending down. ID consult appreciated, we will continue ciprofloxacin for 10 more days which will be till July 14. Hypokalemia: Potassium was 3.2---3.0---3.8 Plan: P.o. potassium chloride tablet was given. Constipation: Probably is induced by the narcotics given at the hospital plus the pain the patient has. Plan: Senna S, MiraLAX Problem List: 1. Renal calculus, right 2. Abdominal pain with vomiting 3. Pyelonephritis Pain Ratin Pain Location: Abdomen Pain Goal: decrease Pain Plan: As indicated Tomorrow's Labs & Rationales: Not applicable Daniel Smith MD 07/05/18 1129: Attending MD Review Statement Attending Statement Attending MD Statement: examined this patient, discuss w/resident/PA/[employer]LECTR[employer] TROUBLESHOOTER, agreed w/resident/PA/ELECTRICAL TROUBLESHOOTER, discussed with family, reviewed EMR data (avail), discussed with nursing, discussed with case mgmt, reviewed images, amended to note Attending Assessment/Plan: The patient was seen and discussed with house staff, nursing, case management and Urology. The patient still has Cr 1.5 and is passing some blood and fragments of stones. Low grade fever 99 with normal WBC. Will continue Cipro. The patient was seen by Dr. Marks and advised that we may discharge on Cipro as planned with close follow-up as OP. Will need further procedures as per Dr. Jacinto prior note.
[2018-07-05 09:29] LABS: ABSOLUTE BASOPHIL COUNT 0 /CUMM (0.0-0.2); ABSOLUTE EOSINOPHIL COUNT 0.1 /CUMM (0.0-0.7); ABSOLUTE GRANULOCYTE CT 4.9 /CUMM (1.4-6.5); ABSOLUTE LYMPH COUNT 0.8 /CUMM (1.2-3.4); ABSOLUTE MONOCYTE COUNT 0.7 /CUMM (0.10-0.60); BASOPHIL % 0.3 % (0.0-2.0); EOSINOPHIL % 1.5 % (0-5); HEMATOCRIT 37.1 % (42-52); MEAN CORPUSCULAR HGB 29.5 PG (27.0-31.0); MEAN CORPUSCULAR HGB CONC 34.6 G/DL (33.0-37.0); MEAN CORPUSCULAR VOLUME 85.4 FL (80.0-94.0); MEAN PLATELET VOLUME 9.1 FL (7.4-10.4); PLATELET COUNT 226 /CUMM (130-400); RBC DISTRIBUTION WIDTH 12.6 % (11.5-14.5); RED BLOOD CELL CT 4.35 /CUMM (4.70-6.10); WHITE BLOOD CELL COUNT 6.4 /CUMM (4.8-10.8)
[2018-07-05] MEDS ORDERED: CIPRO500 M1 PO ×2 (10:07→10:15)
--- NOTE | 2018-07-05 10:08 | Patient Discharge Instructions ---
Discharge Instructions General Discharge Information You were seen/treated for: Pyelonephritis You had these procedures: Lithotripsy and stent placement Special Instructions: Follow up with Dr. Jacinto within 1 week Follow up with your pcp within 1 week Please have your pcp check your blood work within 1 week Please stay hydrated Acute Coronary Syndrome Inclusion Criteria At DC or during hospital stay patient has or had the following: ACS DIAGNOSIS No Discharge Core Measures Meds if any: Prescribed or Continued at Discharge Meds if any: NOT Prescribed or Continued at Discharge Congestive Heart Failure Inclusion Criteria At DC or during hospital stay patient has or had the following: CHF DIAGNOSIS No Discharge Core Measures Meds if any: Prescribed or Continued at Discharge Meds if any: NOT Prescribed or Continued at Discharge Cerebrovascular accident Inclusion Criteria At DC or during hospital stay patient has or had the following: CVA/TIA Diagnosis No Discharge Core Measures Meds if any: Prescribed or Continued at Discharge Meds if any: NOT Prescribed or Continued at Discharge Venous thromboembolism Inclusion Criteria VTE Diagnosis No VTE Type NONE VTE Confirmed by (Test) NONE Discharge Core Measures - Per Current guidelines, there needs to be overlap - treatment for the first 5 days of Warfarin therapy. - If discharged on Warfarin prior to 5 days of - overlap therapy, the patient will need to be - assessed for post discharge needs including - *Post discharge parental anticoagulation - *Warfarin and/or parental anticoagulation education - *Follow up date to check INR post discharge At least 5 days overlap therapy as Inpatient No Meds if any: Prescribed or Continued at Discharge Note: Overlap Therapy is Warfarin and Anticoagulant Meds if any: NOT Prescribed or Continued at Discharge
[2018-07-05] MEDS ORDERED: SENNA PLUS TAB1 EACH PO ×2 (10:09→10:15)
[2018-07-05] MEDS ORDERED: DULCOLAX5 M1 PO (10:14)
--- NOTE | 2018-07-05 12:48 | PN- Infect Dx ---
Subjective Subjective: Afebrile. He continues to report passing blood clots with urination. He still notes mild right lower quadrant discomfort and constipation, having passed just several small bowel movements. Objective Last 24 Hrs of Vital Signs/I&O Vital Signs Date Time Temp Pulse Resp B/P B/P Pulse O2 O2 Flow FiO2 Mean Ox Delivery Rate 07/05 0611 99.3 70 18 152/98 96 Room Air 07/04 2209 99.6 74 18 142/90 96 07/04 1525 99.1 73 20 150/94 97 Intake & Output 07/05 1600 07/05 0800 07/05 0000 Intake Total 1480 1400 Output Total 2100 1999 Balance -620 -600 Intake, IV 1000 1000 Intake, Oral 480 400 Output, Urine 2100 1999 Physical Exam Other Physical Findings: He appears comfortable in no acute distress Abdomen is soft, mildly tender on palpation of the right lower quadrant, with no guarding or rebound, positive bowel sounds Back mild right CVA tenderness Results Last 24 Hours of Lab Results: Laboratory Tests 07/05 08 Chemistry Sodium (137 - 145 mmol/L) 136 L Potassium (3.5 - 5.1 mmol/L) 3.8 Chloride (98 - 107 mmol/L) 105 Carbon Dioxide (22 - 30 mmol/L) 23 Anion Gap (5 - 16) 8 BUN (9 - 20 mg/dL) 19 Creatinine (0.7 - 1.2 mg/dL) 1.5 H Estimated GFR (>60 ml/min) 49 L BUN/Creatinine Ratio (7 - 25 %) 12.7 Hematology CBC w Diff NO MAN DIFF REQ WBC (4.8 - 10.8 /CUMM) 6.4 RBC (4.70 - 6.10 /CUMM) 4.35 L Hgb (14.0 - 18.0 G/DL) 12.8 L Hct (42 - 52 %) 37.1 L MCV (80.0 - 94.0 FL) 85.4 MCH (27.0 - 31.0 PG) 29.5 MCHC (33.0 - 37.0 G/DL) 34.6 RDW (11.5 - 14.5 %) 12.6 Plt Count (130 - 400 /CUMM) 226 MPV (7.4 - 10.4 FL) 9.1 Gran % (42.2 - 75.2 %) 76.0 H Lymphocytes % (20.5 - 51.1 %) 11.8 L Monocytes % (1.7 - 9.3 %) 10.4 H Eosinophils % (0 - 5 %) 1.5 Basophils % (0.0 - 2.0 %) 0.3 Absolute Granulocytes (1.4 - 6.5 /CUMM) 4.9 Absolute Lymphocytes (1.2 - 3.4 /CUMM) 0.8 L Absolute Monocytes (0.10 - 0.60 /CUMM) 0.7 H Absolute Eosinophils (0.0 - 0.7 /CUMM) 0.1 Absolute Basophils (0.0 - 0.2 /CUMM) 0 Last 24 Hours of [facility] Results: Urine culture July 03 negative Blood cultures x 2 June 30 negative Recent Imaging Studies: Renal ultrasound July 04 reveals hydronephrosis of the right kidney, with a right-sided ureteral stent in place, multiple echogenic calculi bilaterally and mild prostatomegaly Assessment/Plan ID Impression: Stable, with his temperatures and white blood cell count normal, on Ciprofloxacin, Day 5 of treatment for presumed sepsis of urologic origin, with his urine culture from admission, in the setting of right-sided obstruction, negative, now 4 days status post ureteroscopy with laser lithotripsy for stone extraction and stent placement. He has residual right hydronephrosis on ultrasound, with further urologic intervention planned as an outpatient. Suggestion: 1. Continue Ciprofloxacin for 9 more days
--- NOTE | 2018-07-05 15:19 | PN- Urology ---
Subjective Subjective: Patient feels well. Having intermittent gross hematuria Objective Vital Signs and I&Os Vital Signs Date Time Temp Pulse Resp B/P B/P Pulse O2 O2 Flow FiO2 Mean Ox Delivery Rate 07/05 0611 99.3 70 18 152/98 96 Room Air 07/04 2209 99.6 74 18 142/90 96 07/04 1525 99.1 73 20 150/94 97 Intake & Output 07/05 1600 07/05 0800 07/05 0000 07/04 1600 07/04 0800 07/04 0000 Intake Total 1480 1400 2262.5 600 150 Output Total 2099 1950 Balance -620 -600 202.5 200 -1800 Intake, IV 1000 1000 1062.5 600 150 Intake, Oral 363 825 1739 Number 1 Bowel Movements Output, Urine 2099 1950 Patient 134 lb Weight Abd: soft and non tender Laboratory Tests 07/05 0825 Chemistry Sodium (137 - 145 mmol/L) 136 L Potassium (3.5 - 5.1 mmol/L) 3.8 Chloride (98 - 107 mmol/L) 105 Carbon Dioxide (22 - 30 mmol/L) 23 Anion Gap (5 - 16) 8 BUN (9 - 20 mg/dL) 19 Creatinine (0.7 - 1.2 mg/dL) 1.5 H Estimated GFR (>60 ml/min) 49 L BUN/Creatinine Ratio (7 - 25 %) 12.7 Hematology CBC w Diff NO MAN DIFF REQ WBC (4.8 - 10.8 /CUMM) 6.4 RBC (4.70 - 6.10 /CUMM) 4.35 L Hgb (14.0 - 18.0 G/DL) 12.8 L Hct (42 - 52 %) 37.1 L MCV (80.0 - 94.0 FL) 85.4 MCH (27.0 - 31.0 PG) 29.5 MCHC (33.0 - 37.0 G/DL) 34.6 RDW (11.5 - 14.5 %) 12.6 Plt Count (130 - 400 /CUMM) 226 MPV (7.4 - 10.4 FL) 9.1 Gran % (42.2 - 75.2 %) 76.0 H Lymphocytes % (20.5 - 51.1 %) 11.8 L Monocytes % (1.7 - 9.3 %) 10.4 H Eosinophils % (0 - 5 %) 1.5 Basophils % (0.0 - 2.0 %) 0.3 Absolute Granulocytes (1.4 - 6.5 /CUMM) 4.9 Absolute Lymphocytes (1.2 - 3.4 /CUMM) 0.8 L Absolute Monocytes (0.10 - 0.60 /CUMM) 0.7 H Absolute Eosinophils (0.0 - 0.7 /CUMM) 0.1 Absolute Basophils (0.0 - 0.2 /CUMM) 0 Assessment/Plan Assessment/Plan Imp: 1. s/p R ureteroscopy, and laser litho of R ureteral stones and R ureteral stent placement with post procedure hematuria 2. Small non obstructing renal stones 3. Residual R hydro with R ureteral stent in good position Plan: 1. OK to discharge home today with 9 more days of cipro 2. f/u in our office in 1-2 weeks. Will reimage and then decide if he needs a repeat procedure or if the stent can just be removed
== END 2018-07-05 15:15 | DRG 661 ==
LOC: ERH 18:15 → 2NA 23:20 → ERHI 23:20 → ENRESERV 07-01 01:03 → 2NA 07-01 01:57 → ENTRNSPT 07-01 12:04 → EDTRNSPT 07-01 12:07 → EDTRNSPTSTS 07-01 12:07 → CMPTRNSPT 07-01 12:52 → 2NA 07-02 08:03 → ENPENDDIS 07-05 10:26 → 2NA 07-05 15:15
PROVIDERS: Hospitalist; Internal Medicine; Physician Assistant; Student in an Organized Health Care Education/Training Program
PROC: 0TC08ZZ Extirpation of Matter from Right Kidney, Via Natural or Artificial Opening Endoscopic (ICD-10-PCS; principal; 2018-07-01)
PROC: 0T768DZ Dilation of Right Ureter with Intraluminal Device, Via Natural or Artificial Opening Endoscopic (ICD-10-PCS; principal; 2018-07-01)
DX: N13.6 Pyonephrosis (principal)
CPT/HCPCS: 2NAP; ERO; 36415; 36592; 74177; 76000; 76775; 81001; 82355; 82436; 87040; 87086; 93005; 93010; 96374; 96375; C2617; J0131; J0696; J1644; J1885; J2405